=== PATIENT | female | born 1960 | race Caucasian/White ===

== ENCOUNTER 2022-05-01 21:08 | Inpatient (IN) | payer BC ==
[2022-05-01 21:38] LABS: Absolute Lymphocytes (CBC) 1.6 K/uL (0.7-4.9); Hematocrit 42.8 % (36.0-45.0); Lymphocytes % 14.4 % (15.3-44.8); MCV 90.9 fL (80-100); MPV 8.3 fL (7.6-11.3); RBC Red Blood Cell Count 4.71 M/uL (3.86-4.86)
[2022-05-01] MEDS ORDERED: LEVALBUTEROL 1.25 MG/3 ML NEB ONE (21:40)
[2022-05-01] MEDS ORDERED: METOPROLOL TARTRATE 5 MG/5 ML INJ IV ONE (21:46)
[2022-05-01 21:53] LABS: Protime INR 2.24
[2022-05-01 21:59] LABS: Albumin 3.6 g/dL (3.4-5.0); Bilirubin Direct 0.2 mg/dL (0-0.2); Bilirubin Total 0.6 mg/dL (0.2-1.0); Magnesium 1.7 mg/dL (1.8-2.4); Protein, Total 6.9 g/dL (6.4-8.2); Troponin High Sensitivity 18.8 pg/mL (<58.9)
--- NOTE | 2022-05-01 21:59 | RAD REPORT ---
EXAM DESCRIPTION: RAD - Chest Single View - 05/01/2022 9:50 pm CLINICAL HISTORY: SOB Chest pain. COMPARISON: Chest Single View dated 02/22/2016; Chest Single View dated 02/21/2016; Chest Pa And Lat ( 2 Views) dated 02/01/2016; CHEST SINGLE VIEW dated 01/12/2016 FINDINGS: Portable technique limits examination quality. Mild interstitial pulmonary edema. The heart is mildly enlarged in size. No displaced fractures. IMPRESSION: Mild CHF.
[2022-05-01] MEDS ORDERED: AMIODARONE HCL 150 MG/3 ML INJ IV ONE (22:31)
[2022-05-01] MEDS ORDERED: D5W 100 ML IV ONE (22:31)
[2022-05-01] MEDS ORDERED: AMIODARONE IN DEXTROSE,ISO-OSM 360 MG/200 ML BAG IV ONE (22:47)
[2022-05-01] MEDS ORDERED: MAGNESIUM SULFATE 1 gm IVPB 1 GM/100 ML BAG IV ONE (22:48)
--- NOTE | 2022-05-01 23:39 | EDPHYS ---
Physician Documentation [facility] Name: Lora Pack Age: 61 yrs Sex: Female : 1960 Arrival Date: 05/01/2022 Time: 21:09 Bed 19 Private MD: Tej Medellin ED Physician Micheal Stanley HPI: 05/01 21:20 This 61 yrs old Female presents to ER via Wheelchair with complaints of Shortness Of cp Breath. 21:20 The patient has shortness of breath at rest. Onset: The symptoms/episode began/occurred cp yesterday, and became worse today. Duration: The symptoms are continuous, and are steadily getting worse. The patient's shortness of breath is aggravated by light activity, supine position, talking. Associated signs and symptoms: Pertinent negatives: chest pain, productive cough, diaphoresis, fever, vomiting. Severity of symptoms: in the emergency department the symptoms are unchanged despite home interventions. Historical: - Allergies: 21:29 Codeine; kd3 - Home Meds: 21:29 amlodipine 5 mg tab 1 tab once daily [Active]; bisoprolol-hydrochlorothiazide 10-6.25 kd3 mg Oral tab for Hypertension [Active]; valsartan 160 mg Oral tab 1 tab once daily [Active]; - PMHx: 21:29 fibroids; Hypertension; Atrial fibrillation; kd3 - Immunization history:: Adult Immunizations up to date. - Social history:: Smoking status: unknown. ROS: 21:25 Constitutional: Negative for body aches, chills, fever, poor PO intake. cp 21:25 Cardiovascular: Negative for chest pain, edema, palpitations. cp 21:25 Eyes: Negative for injury, pain, redness, and discharge. cp 21:25 ENT: Negative for drainage from ear(s), ear pain, sore throat, difficulty swallowing, difficulty handling secretions. 21:25 Respiratory: Positive for orthopnea, shortness of breath, at rest. 21:25 Abdomen/GI: Negative for abdominal pain, nausea, vomiting, and diarrhea. 21:25 : Negative for urinary symptoms. 21:25 Neuro: Negative for altered mental status, dizziness, headache, loss of consciousness, syncope, weakness. Exam: 21:32 ECG was reviewed by the Attending Physician. cp Vital Signs: 21:28 Pulse 148; Resp 23; Pulse Ox 95% on R/A; kd3 21:33 BP 158 / 93; Pulse 141; Temp 98.5(O); Pulse Ox 97% on 2 lpm NC; Weight 95.25 kg; Height kd3 5 ft. 10 in. (177.80 cm); 21:50 BP 159 / 84; Pulse 137; Resp 33; Pulse Ox 100% on 2 lpm NC; jb4 21:55 BP 129 / 90; Pulse 131; Resp 30; Pulse Ox 95% on 2 lpm NC; jb4 22:52 BP 140 / 89; Pulse 110; Resp 24; Pulse Ox 92% on 4 lpm NC; jb4 23:35 BP 149 / 98; Pulse 123; Resp 31; Pulse Ox 95% on 4 lpm NC; jb4 21:33 Body Mass Index 30.13 (95.25 kg, 177.80 cm) kd3 MDM: 21:25 Patient medically screened. cp 23:00 Data reviewed: vital signs, nurses notes, lab test result(s), EKG, radiologic studies, cp plain films. 23:00 Antibiotic administration: Not indicated, the patient does not have an appreciated cp infiltrate. Test interpretation: by ED physician or midlevel provider: ECG, plain radiologic studies. 05/01 21:19 Order name: Basic Metabolic Panel; Complete Time: 22:04 cp 05/01 22:04 Interpretation: Normal except: NA 134; GLUC 120; BUN 5. cp 05/01 21:19 Order name: CBC with Diff; Complete Time: 21:52 cp 05/01 21:52 Interpretation: Normal except: WBC 11.3; MCV 90.9; MCH 29.6; LAURITA% 77.0; LYM% 14.4; NEUT cp A 8.7. 05/01 21:19 Order name: LFT's; Complete Time: 22:04 cp 05/01 21:19 Order name: Magnesium; Complete Time: 22:04 cp 05/01 21:19 Order name: NT PRO-BNP; Complete Time: 22:04 cp 05/01 21:19 Order name: PT-INR; Complete Time: 22:04 cp 05/01 21:19 Order name: Troponin HS; Complete Time: 22:04 cp 05/02 00:08 Order name: SARS-COV-2 RT PCR; Complete Time: 03:31 EDVT 05/02 00:16 Order name: ABG Arterial Blood Gas EDMS 05/02 03:25 Order name: Troponin High Sensitivity; Complete Time: 03:31 EDMS 05/02 03:26 Order name: Creatine Phosphokinase; Complete Time: 03:31 EDMS 05/02 03:26 Order name: CKMB Creatine Kinase MB; Complete Time: 03:31 EDMS 05/02 03:26 Order name: CBC with Automated Diff; Complete Time: 03:31 EDMS 05/01 21:19 Order name: XRAY Chest (1 view); Complete Time: 22:04 cp 05/01 21:19 Order name: EKG; Complete Time: 21:20 cp 05/01 21:19 Order name: Cardiac monitoring; Complete Time: 21:32 cp 05/01 21:19 Order name: EKG - Nurse/Tech; Complete Time: 21:32 cp 05/01 23:32 Order name: BIPAP cp 05/02 00:19 Order name: CT Chest For PE Angio sb3 05/02 03:31 Order name: Comprehensive Metabolic Panel; Complete Time: 21:57 EDMS 05/02 03:31 Order name: Lipid Profile; Complete Time: 21:57 EDMS 05/02 03:31 Order name: Magnesium; Complete Time: 21:57 EDMS 05/02 03:31 Order name: Thyroid Stimulating Hormone; Complete Time: 21:57 EDMS 05/01 21:19 Order name: IV Saline Lock; Complete Time: 21:32 cp 05/01 21:19 Order name: Labs collected and sent; Complete Time: 21:32 cp 05/01 21:19 Order name: O2 Per Protocol; Complete Time: 21:32 cp 05/01 21:19 Order name: O2 Sat Monitoring; Complete Time: 21:32 cp EC:32 Rate is 135 beats/min. Rhythm is irregular. QRS interval is normal. QT interval is cp normal. Interpreted by me. Reviewed by me. Administered Medications: 21:36 Drug: Xopenex (levalbuterol) (3) 1.25 mg Route: Inhalation; jb4 21:40 Drug: Metoprolol 5 mg Route: IVP; Site: right antecubital; jb4 21:50 Drug: Metoprolol 5 mg Route: IVP; Site: right antecubital; jb4 21:55 Drug: Metoprolol 5 mg Route: IVP; Site: right antecubital; jb4 22:13 Follow up: Response: No adverse reaction jb4 22:30 Drug: amiodarone 150 mg Volume: 100 ml; Route: IVPB; Infused Over: 10 mins; Site: right jb4 antecubital; 22:50 Drug: Magnesium Sulfate 1 grams Route: IVPB; Infused Over: 1 hrs; Site: right hand; jb4 23:50 Follow up: Response: No adverse reaction; Marked relief of symptoms; IV Status: jb4 Completed infusion 22:50 Drug: amiodarone 900 mg, D5W 500 ml Route: IVPB; Rate: 1 mg/min; Site: right jb4 antecubital; 05/02 00:55 Drug: Ativan (LORazepam) 0.5 mg Route: IVP; Site: right hand; sm5 Disposition: 19:40 Co-signature as Attending Physician, Micheal Stanley MD I agree with the assessment and kdr plan of care. Disposition Summary: 05/01/22 23:38 Hospitalization Ordered Hospitalization Status: Inpatient Admission cp Provider: Finesse Vilchis cp Condition: Fair cp Problem: new cp Symptoms: have improved cp Bed/Room Type: Standard cp Location: Intensive Care Unit(05/02/22 06:36) cg Room Assignment: 7-(05/02/22 06:36) cg Diagnosis - Unspecified atrial fibrillation cp - Unspecified combined systolic (congestive) and diastolic (congestive) heart failure cp Forms: - Medication Reconciliation Form cp - SBAR form cp Signatures: Dispatcher [facility] Micheal [facility] MD MD [facility] Harsh Chase PA PA cp Rody Cortez, JERRICA RN Michael Russell RN RN jb4 Daxa Youngblood RN RN kd3 Idania Jones RN RN sm5 Dianne Lee PA PA sb3 Corrections: (The following items were deleted from the chart) 00:06 05/01 23:37 COVID-19/FLU A+B+MOL.LAB.BRZ ordered. [facility] 05/02 00:25 05/01 23:38 Intensive Care Unit cp cg 05/02 00:25 05/01 23:38 cp cg 05/02 06:36 00:25 [facility] ER HOLD cg cg 06: 00:25 ERHOLD- cg cg
--- NOTE | 2022-05-01 23:39 | ER ---
Nurse's Notes [facility] Name: Lora Pack Age: 61 yrs Sex: Female : 1960 Arrival Date: 05/01/2022 Time: 21:09 Bed 19 Private MD: Tej Medellin Diagnosis: Unspecified atrial fibrillation;Unspecified combined systolic (congestive) and diastolic (congestive) heart failure Presentation: 05/01 21:28 Chief complaint: Patient states: i had surgery on my foot yesterday and started kd3 becoming a little short of breath but it has gotten worse this morning and through the day. now i cant even move without feeling like i cannot breathe. Coronavirus screen: Vaccine status: Patient reports receiving the 2nd dose of the covid vaccine. Ebola Screen: No symptoms or risks identified at this time. Initial Sepsis Screen: Does the patient meet any 2 criteria? No. Patient's initial sepsis screen is negative. Does the patient have a suspected source of infection? No. Patient's initial sepsis screen is negative. Risk Assessment: Do you want to hurt yourself or someone else? Patient reports no desire to harm self or others. Onset of symptoms was May 01, 2022. 21:28 Method Of Arrival: Wheelchair kd3 21:28 Acuity: SIN 3 kd3 Triage Assessment: :29 General: Appears uncomfortable, Behavior is calm, cooperative. Pain: Denies pain. kd3 Respiratory: Reports shortness of breath Onset: The symptoms/episode began/occurred yesterday, the patient has moderate shortness of breath. Historical: - Allergies: 21:29 Codeine; kd3 - Home Meds: 21:29 amlodipine 5 mg tab 1 tab once daily [Active]; bisoprolol-hydrochlorothiazide 10-6.25 kd3 mg Oral tab for Hypertension [Active]; valsartan 160 mg Oral tab 1 tab once daily [Active]; - PMHx: 21:29 fibroids; Hypertension; Atrial fibrillation; kd3 - Immunization history:: Adult Immunizations up to date. - Social history:: Smoking status: unknown. Screenin:20 Abuse screen: Denies threats or abuse. Nutritional screening: No deficits noted. jb4 Tuberculosis screening: No symptoms or risk factors identified. Fall Risk IV access (20 points). Ambulatory Aid- Crutches/Cane/Walker (15 pts). Gait- Impaired (20 pts.). Total Archuleta Fall Scale indicates High Risk Score (45 or more points). Fall prevention measures have been instituted. Side Rails Up X 2 Placed Close to Nursing Station Frequent Obs/Assessments Occuring Family Present and informed to notify staff if the need to leave the bedside As available patient and family educated on Fall Prevention Program and Strategies. Assessment: 21:20 General: Appears distressed, uncomfortable, Behavior is calm, cooperative, appropriate jb4 for age. Pain: Denies pain. Neuro: Level of Consciousness is awake, alert, obeys commands, Oriented to person, place, time, situation. Cardiovascular: Patient's skin is warm and dry. Rhythm is atrial fibrillation. Respiratory: Airway is patent Respiratory effort is even, labored, Respiratory pattern is symmetrical, tachypnea. Derm: Skin is intact, Skin is pink, warm \T\ dry. Musculoskeletal: Circulation, motion, and sensation intact. Range of motion: intact in all extremities. 22:30 Reassessment: Patient appears in no apparent distress at this time. Patient and/or jb4 family updated on plan of care and expected duration. Pain level reassessed. Respirations remain labored, tachypneic, and labored. Pt reports feeling better after breathing treatment. 23:30 Reassessment: Patient appears in no apparent distress at this time. No changes from jb4 previously documented assessment. Patient and/or family updated on plan of care and expected duration. Pain level reassessed. Pt reports it feels easier to take a breath. Is able to lay the head of the bed down more. Vital Signs: 21:28 Pulse 148; Resp 23; Pulse Ox 95% on R/A; kd3 21:33 BP 158 / 93; Pulse 141; Temp 98.5(O); Pulse Ox 97% on 2 lpm NC; Weight 95.25 kg; Height kd3 5 ft. 10 in. (177.80 cm); 21:50 BP 159 / 84; Pulse 137; Resp 33; Pulse Ox 100% on 2 lpm NC; jb4 21:55 BP 129 / 90; Pulse 131; Resp 30; Pulse Ox 95% on 2 lpm NC; jb4 22:52 BP 140 / 89; Pulse 110; Resp 24; Pulse Ox 92% on 4 lpm NC; jb4 23:35 BP 149 / 98; Pulse 123; Resp 31; Pulse Ox 95% on 4 lpm NC; jb4 21:33 Body Mass Index 30.13 (95.25 kg, 177.80 cm) kd3 ED Course: 21:09 Patient arrived in ED. as 21:09 Tej Medellin MD is Private Physician. as 21:18 Harsh Chase PA is PHCP. cp 21:18 Micheal Stanley MD is Attending Physician. cp 21:20 Patient has correct armband on for positive identification. Placed in gown. Bed in low jb4 position. Call light in reach. Side rails up X 1. Client placed on continuous cardiac and pulse oximetry monitoring. NIBP monitoring applied. night monitor on. 21:29 Triage completed. kd3 21:29 Arm band placed on right wrist. kd3 21:30 Initial lab(s) drawn, by me, sent to lab. Inserted saline lock: 18 gauge in right jb4 antecubital area, using aseptic technique. Blood collected. 21:32 Michael Hassan RN is Primary Nurse. jb4 21:52 XRAY Chest (1 view) In Process Unspecified. EDMS 22:50 Inserted saline lock: 18 gauge in right hand, using aseptic technique. jb4 23:37 Finesse Vilchis MD is Hospitalizing Provider. cp 05/02 00:00 No provider procedures requiring assistance completed. Patient admitted, IV remains in jb4 place. 00:10 Report given to JERRICA Emerson. jb4 00:27 SARS-COV-2 RT PCR Sent. 5 03:44 CT Chest For PE Angio Sent. bb Administered Medications: 05/01 21:36 Drug: Xopenex (levalbuterol) (3) 1.25 mg Route: Inhalation; jb4 21:40 Drug: Metoprolol 5 mg Route: IVP; Site: right antecubital; jb4 21:50 Drug: Metoprolol 5 mg Route: IVP; Site: right antecubital; jb4 21:55 Drug: Metoprolol 5 mg Route: IVP; Site: right antecubital; jb4 22:13 Follow up: Response: No adverse reaction jb4 22:30 Drug: amiodarone 150 mg Volume: 100 ml; Route: IVPB; Infused Over: 10 mins; Site: right jb4 antecubital; 22:50 Drug: Magnesium Sulfate 1 grams Route: IVPB; Infused Over: 1 hrs; Site: right hand; jb4 23:50 Follow up: Response: No adverse reaction; Marked relief of symptoms; IV Status: jb4 Completed infusion 22:50 Drug: amiodarone 900 mg, D5W 500 ml Route: IVPB; Rate: 1 mg/min; Site: right jb4 antecubital; 05/02 00:55 Drug: Ativan (LORazepam) 0.5 mg Route: IVP; Site: right hand; sm5 Medication: 05/01 23:30 VIS not applicable for this client. jb4 Outcome: 23:38 Decision to Hospitalize by Provider. simone 05/02 00:00 Admitted to ER Hold. Please see [facility] for further documentation. jb4 Condition: stable Discharge instructions given to patient, family, Instructed on the need for admit, Demonstrated understanding of instructions. 09:00 Patient left the ED. ww Signatures: Dispatcher [employer] Maria Dolores Baldwin Brenda, RN RN Harsh Maravilla, GIOVANNA PA Michael Hughes, JERRICA RN jb4 Daxa Youngblood RN RN kd3 Idania Jones RN RN sm5 Juanita Bailey, RN RN ww
[2022-05-02 00:16] LABS: Arterial Blood Carboxyhemoglob 2.1 % (0-1.5); Blood Gas Oxyhemoglobin 90.4 % (94-97); Blood O2 Saturation 93.3 % (92-98.5)
--- NOTE | 2022-05-02 00:35 | P.HP ---
Certification for Inpatient Patient admitted to: Inpatient With expected LOS: >2 Midnights Patient will require the following post-hospital care: None Practitioner: I am a practitioner with admitting privileges, knowledge of patient current condition, hospital course, and medical plan of care. Services: Services provided to patient in accordance with Admission requirements found in Title 42 Section 412.3 of the Code of Federal Regulations Patient History Date of Service: 05/02/22 Primary Care Provider: Sloan Reason for admission: Afib RVR History of Present Illness: Patient is a 61 y/o F with PMH of afib on xarelto and HTN who presented to the ED with complaints of SHOB. She reports that she had L foot surgery at [facility] yesterday that was uncomplicated. She was off her xarelto for 4 days. Patient states that she started feeling anxious and short of breath after she took her first dose of keflex today. She was found to be in afib RVR in the ED. She was given 3 doses of 5 mg metoprolol IVP without conversion and was subsequently put on amiodarone drip. Patient remains in afib and rate has been variable. Patient is very anxious. CXR showed mild CHF and BNP elevated at 4800. Patient denies history of CHF or prior episodes of afib RVR. She was put on bipap (although is not being compliant). ABG revealed pH 7.4, pCO2 45.2, PO2 67.5, HCO3 28.9. CT angio chest negative for PE. Patient is admitted for further evaluation and treatment. Allergies codeine Adverse Reaction (Verified 04/30/16 14:36) Nausea/Vomiting diazepam [From Valium] Adverse Reaction (Verified 04/30/16 14:36) Nausea/Vomiting Home medications list reviewed: Yes Home Medications: Amlodipine Besylate 10 mg PO DAILY 02/21/16 Valsartan [Diovan] 160 mg PO DAILY 02/21/16 Rivaroxaban [Xarelto] 20 mg PO DAILY #30 tablet 02/23/16 Sotalol HCl [Betapace*] 80 mg PO BID #60 tab 02/23/16 clonazePAM [Klonopin] 0.5 mg PO TID PRN #30 tab 02/23/16 Sulfamethoxazole/Trimethoprim [Bactrim Ds Tablet] 1 each PO BID #12 tablet 06/29/16 Tramadol HCl/Acetaminophen [Ultracet Tablet] 1 each PO Q4H #30 tablet 05/02/16 - Past Medical/Surgical History Diabetic: No -: Atrial Fibrillation -: HTN -: -: hysterectomy -: ureter removal -: tonsillectomy -: Angiogram 25 yrs ago r/t Bruit L side head -: L foot Psychosocial/ Personal History: Patient is . - Family History Father -: Stroke Notes: heart attack, stroke Mother -: Cancer, Other (see notes) (afib) Notes: defibrillator - Social History Smoking Status: Current every day smoker Alcohol use: No CD- Drugs: No Caffeine use: Yes Review of Systems Respiratory: Shortness of Breath Physical Examination - Physical Exam General: Alert, In no apparent distress, Other (anxious) HEENT: Atraumatic, PERRLA, EOMI, Sclerae nonicteric Neck: Supple, 2+ carotid pulse no bruit, No LAD, Without JVD or thyroid abnormality Respiratory: Diminished, Crackles/rales Cardiovascular: No edema, Irregular heart rate/rhythm Gastrointestinal: Normal bowel sounds, No tenderness Musculoskeletal: No swelling, No erythema (LLE), No tenderness, Warmth (L leg), Cast in place Integumentary: No rashes Neurological: Normal speech, Normal tone, Sensation intact, Normal affect - Studies Laboratory Data (last 24 hrs) 05/01/22 21:30: PT 25.1 H, INR 2.24 05/01/22 21:30: WBC 11.3 H, Hgb 14.0, Hct 42.8, Plt Count 259 05/01/22 21:30: Sodium 134 L, Potassium 4.0, BUN 5 L, Creatinine 0.68, Glucose 120 H, Magnesium 1.7 L, Total Bilirubin 0.6, AST 11 L, ALT 20, Alkaline Phosphatase 116 Assessment and Plan - Problems (Diagnosis) (1) Atrial fibrillation with RVR Current Visit: Yes Status: Acute (2) Hypomagnesemia Current Visit: Yes Status: Acute (3) Acute CHF Current Visit: Yes Status: Acute Qualifiers: Heart failure type: unspecified Qualified Code(s): I50.9 - Heart failure, unspecified (4) Dyspnea Current Visit: Yes Status: Acute Qualifiers: Dyspnea type: shortness of breath Qualified Code(s): R06.02 - Shortness of breath; R06.00 - Dyspnea, unspecified; R06.01 - Orthopnea (5) Hypertension Current Visit: Yes Status: Chronic Qualifiers: Hypertension type: primary hypertension Qualified Code(s): I10 - Essential (primary) hypertension - Plan -Continue amiodarone drip for afib RVR. Monitor on telemetry. Cardiology consulted. Lovenox for anticoagulation -BNP elevated and CXR showed mild CHF. Patient denies history of CHF. Echo ordered -CT angio chest negative for PE. patient was off xarelto x 4 days and had foot surgery yesterday. No obvious swelling in LEs -Patient saturating appropriately but tachypneic. ABG with mild elevation in CO2 and HCO2, drop in O2. Will cont bipap as RT recommends. -Pulmonology consulted. Breathing treatments PRN -Anxiety likely a component of SHOB. Ativan PRN. -Reconcile and continue home medications -Monitor and replete electrolytes per protocol -Lovenox for VTE ppx -Full code Discharge Plan: Home Plan to discharge in: Greater than 2 days - Advance Directives Does patient have a Living Will: No Does patient have a Durable POA for Healthcare: No - Code Status/Comfort Care Code Status Assessed: Yes (Full) Critical Care: No Time Spent Managing Pts Care (In Minutes): 70
[2022-05-02] MEDS ORDERED: LORazepam 2 MG/ML VIAL ONE (00:52)
[2022-05-02] MEDS ORDERED: ACETAMINOPHEN 500 MG TAB PO PRN (01:29)
[2022-05-02] MEDS ORDERED: AMIODARONE HCL 900 MG in Dextrose 5%-Water 482 ML IV SCH (01:29)
[2022-05-02] MEDS ORDERED: ONDANSETRON 4 MG/2 ML VIAL IV PRN (01:29)
[2022-05-02] MEDS ORDERED: ALBUTEROL 2.5 MG/3 ML NEB SOL NEB PRN ×2 (01:29→14:00)
[2022-05-02 01:40] VITALS: BMI 30.1
[2022-05-02] MEDS ORDERED: FUROSEMIDE 20 MG/ 2ML VIAL IV ONE (02:23)
[2022-05-02 03:13] LABS: Hematocrit 40.4 % (36.0-45.0); Lymphocytes % 9.7 % (15.3-44.8); MCV 91.2 fL (80-100); MPV 8.9 fL (7.6-11.3); RBC Red Blood Cell Count 4.43 M/uL (3.86-4.86)
[2022-05-02 03:25] LABS: CKMB Creatine Kinase MB < 1.0 ng/mL (1.0-3.6); Creatine Phosphokinase 37 U/L (26-192)
[2022-05-02 03:31] LABS: Albumin 3.2 g/dL (3.4-5.0); Bilirubin Total 0.7 mg/dL (0.2-1.0); Magnesium 1.7 mg/dL (1.8-2.4); Protein, Total 6.3 g/dL (6.4-8.2); Thyroid Stimulating Hormone 1.46 uIU/mL (0.360-3.740)
[2022-05-02] MEDS ORDERED: AMIODARONE IN DEXTROSE,ISO-OSM 360 MG/200 ML BAG IV ONE (04:44)
[2022-05-02] MEDS ORDERED: FUROSEMIDE 20 MG/ 2ML VIAL ONE (06:43)
[2022-05-02] MEDS: SOTALOL HCL 80 MG TAB PO SCH ×2 (07:53→17:28)
[2022-05-02] MEDS ORDERED: METOPROLOL XL 50 MG TAB PO SCH (08:00)
[2022-05-02] MEDS ORDERED: METOPROLOL XL 50 MG TAB PO ONE (08:27)
[2022-05-02] MEDS ORDERED: SOTALOL HCL 80 MG TAB ONE (08:27)
[2022-05-02] MEDS ORDERED: ENOXAPARIN 40 MG/0.4 ML SQ SCH (09:00)
--- NOTE | 2022-05-02 12:16 | RAD REPORT ---
EXAM DESCRIPTION: CT - Chest For Pe Angio - 05/02/2022 6:33 am CLINICAL HISTORY: Shortness of breath TECHNIQUE: Axial computed tomographic angiography images of the chest with intravenous contrast. S agittal and coronal reformatted images were created and reviewed. This CT exam was performed using one or more of the following dose reduction techniques: automated exposure control, adjustment of t he mA and/or kV according to patient size, and/or use of iterative reconstruction technique. MIP reconstructed images were created and reviewed. COMPARISON: No relevant prior studies available. FINDINGS: Artifacts: Motion artifact degrades image quality and limits evaluation of segmental and subsegmental vessels. Pulmonary arteries: No central or proximal segmental pulmonary arterial filling defects. Aorta: Mild atherosclerotic disease. No thoracic aortic aneurysm. Lungs: Interstitial thickening and patchy groundglass opacities with a lower lobe predominance. 8 m m left lower lobe nodule (series 401 image 115). Pleural space: Trace bilateral pleural effusions. No pneumothorax. Heart: The heart is moderately enlarged. Coronary artery calcification. No significant pericardia l effusion. No evidence of RV dysfunction. Mediastinum: Mildly enlarged mediastinal and right hilar lymph nodes measuring up to 16 mm in short axis. Thyroid: 1 cm peripherally calcified left thyroid nodule. Bones/joints: Multilevel spondylosis. No acute fracture. No dislocation. Soft tissues: Unremarkable. Lymph nodes: See above. Liver: The liver is enlarged. Intraperitoneal space: Minimal free fluid in the upper abdomen. IMPRESSION: 1. Motion artifact degrades image quality and limits evaluation of segmental and subse gmental vessels. No central or proximal segmental pulmonary embolic disease. 2. Findings suggestive of mild pulmonary congestion including trace bilateral pleural effusions. Culp perimposed infection not excluded. 3. 8 mm left lower lobe nodule. Recommend a non-contrast Chest CT at 6-12 months. If patient is hig h risk for malignancy, recommend an additional non-contrast Chest CT at 18-24 months; if patient is l ow risk for malignancy a non-contrast Chest CT at 18-24 months is optional. These guidelines do not a pply to immunocompromised patients and patients with cancer. Follow up in patients with significant c omorbidities as clinically warranted. For lung cancer screening, adhere to Lung-RADS guidelines. Refe luan: Radiology. 2017; 284(1):228-43. 4. 1 cm left thyroid nodule. No follow-up imaging is recommended. Reference: J Am Maribell Radiol. 2015 Dec;12(2): 143-50 5. Other findings as above. Electronically signed by: Harvey Lynn MD 05/02/2022 2:10 AM CDT Due to temporary technical issues with the PACS/Fluency reporting system, reports are being signed by the in house radiologist without review as a courtesy to ensure prompt reporting. The interpreting r adiologist is fully responsible for the content of the report.
--- NOTE | 2022-05-02 12:54 | EKG ---
Test Date: 2022-05-01 Test Time: 21:25:43 Steel Crane Operator: VASQUEZ MEASUREMENT RESULTS: Intervals: Rate: 135 MT: QRSD: 80 QT: 334 QTc: 501 [place]: P: MT: QRS: 64 T: 261 INTERPRETIVE STATEMENTS: Atrial fibrillation with rapid ventricular response with premature ventricular or aberrantly conducted complexes Low voltage QRS Cannot rule out Anterior infarct, age undetermined Marked ST abnormality, possible inferior subendocardial injury Abnormal ECG Compared to ECG 05/01/2022 21:24:16 Ventricular premature complex(es) now present ST (T wave) deviation now present Myocardial infarct finding still present Electronically Signed On 05-02-22 12:53:00 CDT by Reggie Goodson
--- NOTE | 2022-05-02 12:54 | EKG ---
Test Date: 2022-05-01 Test Time: 21:24:16 Hadoop Architect: VASQUEZ MEASUREMENT RESULTS: Intervals: Rate: 137 AR: QRSD: 76 QT: 360 QTc: 543 [place]: P: AR: QRS: 63 T: 67 INTERPRETIVE STATEMENTS: Atrial fibrillation with rapid ventricular response Low voltage QRS Cannot rule out Anteroseptal infarct, age undetermined Abnormal ECG Compared to ECG 02/22/2016 07:03:19 Low QRS voltage now present Myocardial infarct finding now present Sinus rhythm no longer present First degree AV block no longer present Electronically Signed On 05-02-22 12:53:04 CDT by Reggie Goodson
--- NOTE | 2022-05-02 15:03 | P.PN ---
Subjective Date of Service: 05/02/22 Patient is clinically doing well. Patient with no new complaints. Heart rate is still elevated. Currently on sotalol. Will finish 3 doses. Echocardiogram pending. Anticipate discharge in the morning. Review of Systems 10-point ROS is otherwise unremarkable Physical Examination - Vital Signs Temperature: 97.7 F Blood Pressure: 112/60 Pulse: 100 Respirations: 24 Pulse Ox (%): 100 - Physical Exam General: Alert, In no apparent distress HEENT: Atraumatic, PERRLA, EOMI Neck: Supple, JVD not distended Respiratory: Clear to auscultation bilaterally, Normal air movement Cardiovascular: Irregular heart rate/rhythm Gastrointestinal: Normal bowel sounds, Soft and benign, Non-distended, No tenderness Musculoskeletal: No clubbing, No swelling, No tenderness Neurological: Sensation intact, Cranial nerves 3-12 intact Lymphatics: No axilla or inguinal lymphadenopathy - Studies Laboratory Data (last 24 hrs) 05/01/22 21:30: PT 25.1 H, INR 2.24 05/01/22 21:30: WBC 11.3 H, Hgb 14.0, Hct 42.8, Plt Count 259 05/01/22 21:30: Sodium 134 L, Potassium 4.0, BUN 5 L, Creatinine 0.68, Glucose 120 H, Magnesium 1.7 L, Total Bilirubin 0.6, AST 11 L, ALT 20, Alkaline Phosphatase 116 Medications List Reviewed: Yes Assessment & Plan - Problems (Diagnosis) (1) Acute CHF Current Visit: Yes Status: Acute Qualifiers: Heart failure type: unspecified Qualified Code(s): I50.9 - Heart failure, unspecified (2) Atrial fibrillation with RVR Current Visit: Yes Status: Acute (3) Dyspnea Current Visit: Yes Status: Acute Qualifiers: Dyspnea type: shortness of breath Qualified Code(s): R06.02 - Shortness of breath; R06.00 - Dyspnea, unspecified; R06.01 - Orthopnea - Plan Plan: 1. Continue sotalol and Xarelto 2. Echocardiogram pending 3. Appreciate cardiology input 4. Remain in ICU 5. Monitor hemodynamics closely 6. GI DVT prophylaxis Discharge Plan: Home Plan to discharge in: Greater than 2 days - Advance Directives Does patient have a Living Will: No Does patient have a Durable POA for Healthcare: No - Code Status/Comfort Care Code Status Assessed: Yes Code Status: Full Code Critical Care: Yes Time Spent Managing PTS Care (In Minutes): 25
[2022-05-02] MEDS: RIVAROXABAN 20 MG TABLET PO SCH (17:28)
[2022-05-02] MEDS: LORazepam 2 MG/ML VIAL IV PRN (20:21)
[2022-05-03] MEDS: LORazepam 2 MG/ML VIAL IV PRN ×3 (02:05→16:40)
[2022-05-03 05:20] LABS: Absolute Lymphocytes (CBC) 1.3 K/uL (0.7-4.9); Lymphocytes % 19.6 % (15.3-44.8); MCV 89.7 fL (80-100); RBC Red Blood Cell Count 4.34 M/uL (3.86-4.86)
[2022-05-03 05:41] LABS: Albumin 3.1 g/dL (3.4-5.0); Bilirubin Total 0.9 mg/dL (0.2-1.0); Magnesium 1.7 mg/dL (1.8-2.4); Potassium 3.6 mmol/L (3.5-5.1)
[2022-05-03] MEDS: SOTALOL HCL 80 MG TAB PO SCH ×2 (06:35→16:40)
--- NOTE | 2022-05-03 06:44 | ECHO ---
HEIGHT: 5 ft 10 in WEIGHT: 210 lb 0 oz DATE OF STUDY: 05/02/[address]: Dianne Lee 2-DIMENSIONAL: YES M.MODE: YES DOPPLER: YES COLOR FLOW: YES TDS: PORTABLE: YES DEFINITY: BUBBLE STUDY: DIAGNOSIS: ATRIAL FIBRILLATION WITH RAPID VENTRICULAR RESPONSE/ ACUTE CONGESTIVE HEART FAILURE CARDIAC HISTORY: CATHERIZATION: SURGERY: PROSTHETIC VALVE: PACEMAKER: MEASUREMENTS (cm) DIASTOLIC (NORMALS) SYSTOLIC (NORMALS) IVSd 1.1 (0.6-1.2) LA Diam 4.5 (1.9-4.0) LVEF 40-45% LVIDd 5.2 (3.5-5.7) LVIDs 3.6 (2.0-3.5) %FS % LVPWd 1.2 (0.6-1.2) Ao Diam 2.5 (2.0-3.7) 2 DIMENSIONAL ASSESSMENT: RIGHT ATRIUM: NORMAL LEFT ATRIUM: DILATED RIGHT VENTRICLE: NORMAL LEFT VENTRICLE: NORMAL SIZE TRICUSPID VALVE: NORMAL MITRAL VALVE: NORMAL PULMONIC VALVE: NORMAL AORTIC VALVE: NORMAL PERICARDIAL EFFUSION: NONE AORTIC ROOT: NONE LEFT VENTRICULAR WALL MOTION: MILD GLOBAL HYPOKINESIS DOPPLER/COLOR FLOW: MILD MITRAL AND TRICUSPID REGURGITATION COMMENTS: ATRIAL FIBRILLATION. MILD MITRAL AND TRICUSPID REGURGITATION. NO THROMBUS. LEFT ATRIAL ENLARGEMENT. MILD GLOBAL HYPOKINESIS. TECHNOLOGIST: LOUIS ROWE
[2022-05-03] MEDS ORDERED: METOPROLOL XL 50 MG TAB PO SCH (09:00)
[2022-05-03] MEDS ORDERED: SOTALOL HCL 80 MG TAB PO ONE (09:00)
[2022-05-03] MEDS ORDERED: MAGNESIUM SULFATE 1 gm IVPB 1 GM/100 ML BAG IV ONE (09:00)
[2022-05-03] MEDS ORDERED: POTASSIUM CL SA 10 MEQ TAB PO ONE (09:00)
[2022-05-03] MEDS: FUROSEMIDE 40 MG TABLET PO SCH (09:11)
--- NOTE | 2022-05-03 11:56 | CON ---
Date of Consultation: 05/02/2022 Reason For Consultation: Atrial fibrillation with rapid ventricular response. History Of Present Illness: Ms. Pack is a 61-year-old woman. Has had a history of hypertension and atrial fibrillation in the past. She has been taking sotalol and Xarelto as well as Norvasc and Diovan for her hypertension and atrial fibrillation, but came in with rapid ventricular response. Re cently had some foot issues that may not need surgery down the road. Came in with shortness of breat h, rapid ventricular response. Denied PND, orthopnea. Has had pedal edema. Denied any syncope. He s had palpitations. Denied any fever or chills. She is still having atrial fibrillation with rapid ventricular response now. Allergies: INCLUDE CODEINE AND VALIUM. Review of Systems: Negative. Social History: Negative. Family History: Noncontributory. Medications: Listed earlier. Past Medical History: Listed earlier. Physical Examination: Vital Signs: She had a 97% O2 saturation on CPAP and BiPAP. She was in atrial fibrillation at a rat e of 113. Chest: Revealed some rales. HEENT: Negative. Neck: Supple with no bruit, lymphadenopathy, JVD, or thyromegaly. Cardiac: Revealed atrial fibrillation. Extremities: Revealed 1 to 2+ edema to the knee. No clubbing or cyanosis. Diagnostic Data: INR was 3.34. Her BNP was 4784. Her pO2 was 67, pCO2 of 45, pH of 7.42. Impression And Plan: 1.Paroxysmal rapid atrial fibrillation. 2.Possible acute systolic congestive heart failure. 3.Elevated BNP secondary to congestive heart failure. 4.Elevated INR secondary to Xarelto. For now, we will continue the Xarelto and continue the sotalol at 80 b.i.d. Continue Diovan and Norvasc. I think she should be on a low dose Lasix. Echocardiogr am is pending. We will see what that shows before making further decisions. JANNA/ANDRIA Voice ID: [id number] Report ID: [id number]
--- NOTE | 2022-05-03 13:11 | PN ---
Date of Progress Note: 05/03/2022 Ms. Pack had came in with CHF, paroxysmal atrial fibrillation with rapid ventricular response. H er atrial fibrillation still at a rate of about 110 to 120. I would agree with sotalol to 160 b.i.d. Her ejection fraction on the echocardiogram is 45% with [id number] global hypokinesis. I thi nk she needs to be on home medication, sotalol 160 b.i.d., Lasix 40 mg daily. She can go home probab ly in the morning. I discussed the case with Dr. Vilchis. She will need an outpatient followup. She n eeds an outpatient Lexiscan and if atrial fibrillation remains at sotalol 160 b.i.d., we will perform a direct current cardioversion. JANNA/ANDRIA Voice ID: [id number] Report ID: [id number]
--- NOTE | 2022-05-03 14:24 | P.PN ---
Date of Service: 05/03/22 Subjective Patient was tachycardic. Rate in the 110s to 120s. Patient was upset that she was not able to go home today. Have told her that if we can get her rate better controlled by increasing the dose of sotalol and that should help her ability to go home. Review of Systems 10-point ROS is otherwise unremarkable Physical Examination - Vital Signs reviewed - Physical Exam General: Alert, In no apparent distress Respiratory: Clear to auscultation bilaterally, Normal air movement Cardiovascular: Irregular heart rate/rhythm Gastrointestinal: Normal bowel sounds, Soft and benign, Non-distended, No tenderness Musculoskeletal: No clubbing, No swelling, No tenderness Neurological: Sensation intact, Cranial nerves 3-12 intact Assessment & Plan - Problems (Diagnosis) (1) Acute CHF Current Visit: Yes Status: Acute Qualifiers: Heart failure type: unspecified Qualified Code(s): I50.9 - Heart failure, unspecified (2) Atrial fibrillation with RVR Current Visit: Yes Status: Acute (3) Dyspnea Current Visit: Yes Status: Acute Qualifiers: Dyspnea type: shortness of breath Qualified Code(s): R06.02 - Shortness of breath; R06.00 - Dyspnea, unspecified; R06.01 - Orthopnea (4) Alcohol abuse Current Visit: Yes Status: Acute - Plan Plan: 1. Continue sotalol and Xarelto; increased to sotalol 160mg po BID 2. Echocardiogram pending 3. Appreciate cardiology input 4. Remain in ICU 5. Monitor hemodynamics closely 6. GI DVT prophylaxis Discharge Plan: Home Plan to discharge in: Greater than 2 days - Advance Directives Does patient have a Living Will: No Does patient have a Durable POA for Healthcare: No - Code Status/Comfort Care Code Status Assessed: Yes Code Status: Full Code Critical Care: Yes Time Spent Managing PTS Care (In Minutes): 25
[2022-05-03] MEDS: RIVAROXABAN 20 MG TABLET PO SCH (16:40)
[2022-05-03] MEDS: LOSARTAN POTASSIUM 50 MG TABLET PO SCH (20:15)
[2022-05-03] MEDS: chlordiazePOXIDE HCl 25 MG CAP PO SCH (20:15)
[2022-05-03] MEDS ORDERED: chlordiazePOXIDE HCl 5 MG CAP PO SCH (21:00)
[2022-05-04 04:41] LABS: Absolute Lymphocytes (CBC) 1.3 K/uL (0.7-4.9); Hematocrit 40.1 % (36.0-45.0); Lymphocytes % 19.8 % (15.3-44.8); MCV 90.2 fL (80-100); RBC Red Blood Cell Count 4.45 M/uL (3.86-4.86)
[2022-05-04] MEDS: SOTALOL HCL 80 MG TAB PO SCH (05:05)
[2022-05-04 05:07] LABS: Bilirubin Total 0.9 mg/dL (0.2-1.0); Magnesium 1.8 mg/dL (1.8-2.4); Potassium 3.6 mmol/L (3.5-5.1); Protein, Total 6.2 g/dL (6.4-8.2)
[2022-05-04] MEDS ORDERED: MAGNESIUM SULFATE 1 gm IVPB 1 GM/100 ML BAG IV ONE (07:00)
[2022-05-04] MEDS ORDERED: METOPROLOL TARTRATE 5 MG/5 ML INJ IV ONE (07:25)
[2022-05-04] MEDS ORDERED: FLUMAZENIL 0.1 MG/ML (5 mL VIAL) IV ONE (07:26)
[2022-05-04] MEDS ORDERED: MIDAZOLAM HCL 10 ML ONE (07:26)
[2022-05-04] MEDS ORDERED: MIDAZOLAM HCL 2 MG/2 ML INJ ONE (07:26)
[2022-05-04] MEDS ORDERED: ATROPINE SULFATE 1 MG/ML INJ ONE (07:26)
[2022-05-04] MEDS ORDERED: NA CHLORIDE 0.9% 500 ML ONE (07:28)
[2022-05-04] MEDS: LOSARTAN POTASSIUM 50 MG TABLET PO SCH (09:00)
[2022-05-04] MEDS: chlordiazePOXIDE HCl 25 MG CAP PO SCH (09:00)
[2022-05-04] MEDS: FUROSEMIDE 40 MG TABLET PO SCH (09:00)
--- NOTE | 2022-05-04 09:49 | EKG ---
Test Date: 2022-05-04 Test Time: 06:57:09 Client Strategist: TEMI MEASUREMENT RESULTS: Intervals: Rate: 85 IA: 208 QRSD: 92 QT: 428 QTc: 509 [place]: P: 55 IA: 208 QRS: 7 T: 60 INTERPRETIVE STATEMENTS: Normal sinus rhythm Possible Left atrial enlargement Low voltage QRS Incomplete right bundle branch block Cannot rule out Anterior infarct, age undetermined Abnormal ECG Compared to ECG 05/01/2022 21:25:43 Incomplete right bundle-branch block now present Atrial fibrillation no longer present Ventricular premature complex(es) no longer present ST (T wave) deviation no longer present Myocardial infarct finding still present Electronically Signed On 05-04-22 09:48:30 CDT by Reggie Goodson
[2022-05-04 13:28] VITALS: O2SAT 96
[2022-05-04 13:45] VITALS: BP 133/70; TEMP 98.7
--- NOTE | 2022-05-05 23:53 | P.DS ---
Discharge Date: 05/04/22 Primary Care Provider: Sloan Disposition: ROUTINE DISCHARGE Discharge Condition: GOOD Reason for Admission: Afib RVR - Problems (1) Acute CHF Status: Acute Qualifiers: Heart failure type: unspecified Qualified Code(s): I50.9 - Heart failure, unspecified (2) Atrial fibrillation with RVR Status: Acute (3) Dyspnea Status: Acute Qualifiers: Dyspnea type: shortness of breath Qualified Code(s): R06.02 - Shortness of breath; R06.00 - Dyspnea, unspecified; R06.01 - Orthopnea Brief History of Present Illness: Patient is a 61 y/o F with PMH of afib on xarelto and HTN who presented to the ED with complaints of SHOB. She reports that she had L foot surgery at [facility] yesterday that was uncomplicated. She was off her xarelto for 4 days. Patient states that she started feeling anxious and short of breath after she took her first dose of keflex today. She was found to be in afib RVR in the ED. She was given 3 doses of 5 mg metoprolol IVP without conversion and was subsequently put on amiodarone drip. Patient remains in afib and rate has been variable. Patient is very anxious. CXR showed mild CHF and BNP elevated at 4800. Patient denies history of CHF or prior episodes of afib RVR. She was put on bipap (although is not being compliant). ABG revealed pH 7.4, pCO2 45.2, PO2 67.5, HCO3 28.9. CT angio chest negative for PE. Patient is admitted for further evaluation and treatment. Hospital Course: patient is clinically doing well. Patient's medication was increased to 160 mg twice a day. Patient's rhythm stayed in atrial fibrillation. Patient had to be cardioverted. Patient will continue on anticoagulation per Cardiology recommendation. At this time, patient is stable for discharge home with outpati ent follow-up. Vital Signs/Physical Exam: Temp Pulse Resp BP Pulse Ox 98.7 F 68 23 H 133/70 99 05/04/22 12:00 05/04/22 12:00 05/04/22 12:00 05/04/22 12:00 05/04/22 12:00 General: Alert, In no apparent distress, Oriented x3 Laboratory Data at Discharge: WBC 6.7 K/uL (4.3-10.9) 05/04/22 04:04 Hgb 13.2 g/dL (12.0-15.0) 05/04/22 04:04 Hct 40.1 % (36.0-45.0) 05/04/22 04:04 Plt Count 210 K/uL (152-406) 05/04/22 04:04 PT 25.1 SECONDS (9.5-12.5) H 05/01/22 21:30 INR 2.24 05/01/22 21:30 Sodium 134 mmol/L (136-145) L 05/04/22 04:04 Potassium 3.6 mmol/L (3.5-5.1) 05/04/22 04:04 BUN 9 mg/dL (7-18) 05/04/22 04:04 Creatinine 0.51 mg/dL (0.55-1.3) L 05/04/22 04:04 Glucose 108 mg/dL (74-106) H 05/04/22 04:04 Magnesium 1.8 mg/dL (1.8-2.4) 05/04/22 04:04 Total Bilirubin 0.9 mg/dL (0.2-1.0) 05/04/22 04:04 AST 13 U/L (15-37) L 05/04/22 04:04 ALT 20 U/L (12-78) 05/04/22 04:04 Alkaline Phosphatase 102 U/L (45-117) 05/04/22 04:04 Triglycerides 71 mg/dL (<150) 05/02/22 02:40 Cholesterol 98 mg/dL (<200) 05/02/22 02:40 HDL Cholesterol 36 mg/dL (40-60) L 05/02/22 02:40 Cholesterol/HDL Ratio 2.72 05/02/22 02:40 Home Medications: Rivaroxaban [Xarelto] 20 mg PO DAILY #30 tablet 02/23/16 clonazePAM [Klonopin*] 0.5 mg PO TID PRN #30 tab 02/23/16 Atorvastatin Calcium [Lipitor] 40 mg PO DAILY 05/02/22 Hydralazine [Apresoline*] 100 mg PO TID 05/02/22 Mecobalamin [B12 Active] 1,000 mg PO DAILY 05/02/22 Olmesartan Medoxomil 40 mg PO DAILY 05/02/22 Vitamin D [Drisdol*] 50,000 units PO ONCE 05/02/22 Sotalol HCl [Betapace*] 160 mg PO BID #120 tab 05/04/22 New Medications: Sotalol HCl [Betapace*] 160 mg PO BID #120 tab Physician Discharge Instructions: OK to DC IV and DC home follow up with primary care doctor in 1-2 weeks Follow up with Dr. Goodson in 1-2 weeks new prescriptions written for patient to be taken to pharmacy call nurses station at [phone] with any questions regarding your admission Diet: AHA Activity: Bedrest Followup: Tej Medellin MD [Primary Care Provider] - Time spent managing pt's care (in minutes): 35
--- NOTE | 2022-05-06 03:54 | OP ---
Date of Procedure: 05/04/2022 Surgeon: Reggie Goodson MD Nitroglycerin Neutralizer: Ms. Pamela Rosario. Procedure: Direct current cardioversion. Indication: Atrial fibrillation. Indications: Ms. Pack came into the hospital with atrial fibrillation, unresponsive to sotalol e mary at 160 twice a day. Her heart rate was 130. We decided to intervene in the ICU. Procedure In Detail: She received 14 mg of Versed IV push for total sedation and received 1 shock of 200 joules and converted back to sinus rhythm. As far as were concerned, she can go home when she w akes up on sotalol 160 b.i.d. and Xarelto and we will see her in the office as an outpatient in the n ear future. There were no complications of the procedure. Anesthesia: Total conscious sedation was 15 minutes. JANNA/ANDRIA Voice ID: [id number] Report ID: [id number]
== END 2022-05-04 13:25 | disposition home or self-care (01) | DRG 308 ==
LOC: ER 21:08 → ERHOLD 05-02 01:19 → 3RD-ICU 05-02 08:24
PROVIDERS: ADMIT Hospitalist; ATTEND Hospitalist
PROC: 5A09357 Assistance with Respiratory Ventilation, Less than 24 Consecutive Hours, Continuous Positive Airway Pressure (ICD-10-PCS; 2022-05-02)
PROC: 5A2204Z Restoration of Cardiac Rhythm, Single (ICD-10-PCS; principal; 2022-05-04)
DX: I48.0 Paroxysmal atrial fibrillation (principal); J96.01 Acute respiratory failure with hypoxia; I50.41 Acute combined systolic (congestive) and diastolic (congestive) heart failure; I11.0 Hypertensive heart disease with heart failure; F10.10 Alcohol abuse, uncomplicated; E83.42 Hypomagnesemia; Z79.01 Long term (current) use of anticoagulants; F17.210 Nicotine dependence, cigarettes, uncomplicated; Z20.822 Contact with and (suspected) exposure to COVID-19; Z91.19 Patient's noncompliance with other medical treatment and regimen
CPT/HCPCS: 0240U; 36415; 71045; 71275; 80048; 80053; 80061; 80076; 82550; 82553; 82805; 83735; 83880; 84443; 84484; 85025; 85610; 92960; 93005; 93306; 94660; 99285; J0282; J0461; J1940; J2250; J3475; J7040; Q9967; U0003

== ENCOUNTER 2022-06-04 02:54 | Observation (INO) | payer BC ==
[2022-06-04 03:24] LABS: Protime INR 2.89
[2022-06-04 03:25] LABS: Absolute Lymphocytes (CBC) 1.3 K/uL (0.7-4.9); Hematocrit 42.2 % (36.0-45.0); Lymphocytes % 16.8 % (15.3-44.8); MCV 84.1 fL (80-100); MPV 8.5 fL (7.6-11.3); RBC Red Blood Cell Count 5.02 M/uL (3.86-4.86)
[2022-06-04 03:37] LABS: Potassium 3.7 mmol/L (3.5-5.1); Troponin High Sensitivity 9.4 pg/mL (<58.9)
--- NOTE | 2022-06-04 04:08 | EDPHYS ---
Physician Documentation [facility] Name: Lora Pack Age: 61 yrs Sex: Female : 1960 Arrival Date: 06/04/2022 Time: 02:55 Bed 5 Private MD: Micheal Stanley D ED Physician Micheal Stanley HPI: 06/04 05:07 This 61 yrs old Female presents to ER via Wheelchair with complaints of Breathing kdr Difficulty. 05:07 The patient has shortness of breath at rest, with light activity. Onset: The kdr symptoms/episode began/occurred gradually, 2 day(s) ago. Duration: The symptoms are continuous, and are steadily getting worse. The patient's shortness of breath is aggravated by light activity, supine position, walking. Associated signs and symptoms: Pertinent positives: Palpatations. Severity of symptoms: At their worst the symptoms were mild moderate just prior to arrival, in the emergency department the symptoms are unchanged. The patient has experienced similar episodes in the past, chronically. The patient has been recently seen by a physician: The patient has been recently been admitted at [facility], was discharged last month. Historical: - Allergies: 03:02 Codeine; aa9 03:02 Valium; aa9 - Home Meds: 03:42 Xarelto 20 mg oral tab 1 tab once daily [Active]; metoprolol tartrate 50 mg Oral tab 2 aa9 tabs once daily [Active]; clonazepam 0.5 mg Oral tab 1 tab 2 times per day [Active]; atorvastatin 40 mg oral tab 1 tab once daily [Active]; olmesartan 40 mg oral tab 1 tab once daily [Active]; hydralazine 100 mg Oral tab 1 tab 3 times per day [Active]; Vitamin D Oral 50,000 unit once per week [Active]; sotalol 80 mg Oral tab 1 tab 2 times per day [Active]; Vitamin B-12 1,000 mcg Oral tab [Active]; - PMHx: 03:02 Atrial fibrillation; Hypertension; aa9 - PSHx: 03:02 section; Ligation of fallopian tube; aa9 - Immunization history:: Client reports receiving the 2nd dose of the Covid vaccine. - Social history:: Smoking status: Patient reports the use of cigarette tobacco products, smokes one pack cigarettes per day. ROS: 05:07 Constitutional: Negative for fever, chills, and weight loss, Eyes: Negative for injury, kdr pain, redness, and discharge, ENT: Negative for injury, pain, and discharge, Neck: Negative for injury, pain, and swelling, Abdomen/GI: Negative for abdominal pain, nausea, vomiting, diarrhea, and constipation, Back: Negative for injury and pain, : Negative for injury, bleeding, discharge, and swelling, MS/Extremity: Negative for injury and deformity, Skin: Negative for injury, rash, and discoloration, Neuro: Negative for headache, weakness, numbness, tingling, and seizure activity. Psych: Negative for depression, anxiety, suicide ideation, homicidal ideation, and hallucinations, Allergy/Immunology: Negative for hives, rash, and allergies, Endocrine: Negative for neck swelling, polydipsia, polyuria, polyphagia, and marked weight changes, Hematologic/Lymphatic: Negative for swollen nodes, abnormal bleeding, and unusual bruising. 05:07 Cardiovascular: Positive for edema, palpitations, Negative for chest pain. 05:07 Respiratory: Positive for dyspnea on exertion, shortness of breath, Negative for hemoptysis, orthopnea, pleurisy. 05:07 MS/extremity: Positive for Wrap to left lower extremity. Exam: 05:07 Constitutional: This is a well developed, well nourished patient who is awake, alert, kdr and in mild distress. Head/Face: Normocephalic, atraumatic. Eyes: Pupils equal round and reactive to light, extra-ocular motions intact. Lids and lashes normal. Conjunctiva and sclera are non-icteric and not injected. Cornea within normal limits. Periorbital areas with no swelling, redness, or edema. Neck: Trachea midline, no thyromegaly or masses palpated, and no cervical lymphadenopathy. Supple, full range of motion without nuchal rigidity, or vertebral point tenderness. No Meningismus. Chest/axilla: Normal chest wall appearance and motion. Nontender with no deformity. No lesions are appreciated. Cardiovascular: Regular rate and rhythm with a normal S1 and S2. No gallops, murmurs, or rubs. Normal PMI, no JVD. No pulse deficits. Respiratory: Lungs have equal breath sounds bilaterally, clear to auscultation and percussion. No rales, rhonchi or wheezes noted. No increased work of breathing, no retractions or nasal flaring. Abdomen/GI: Soft, non-tender, with normal bowel sounds. No distension or tympany. No guarding or rebound. No evidence of tenderness throughout. Back: No spinal tenderness. No costovertebral tenderness. Full range of motion. Skin: Warm, dry with normal turgor. Normal color with no rashes, no lesions, and no evidence of cellulitis. Neuro: Awake and alert, GCS 15, oriented to person, place, time, and situation. Cranial nerves II-XII grossly intact. Motor strength 5/5 in all extremities. Sensory grossly intact. Cerebellar exam normal. Normal gait. Psych: Awake, alert, with orientation to person, place and time. Behavior, mood, and affect are within normal limits. 05:07 Respiratory: the patient does not display signs of respiratory distress, Respirations: normal, Breath sounds: rales, that are mild, are scattered, are heard diffusely. Vital Signs: 02:57 Weight 95.25 kg; Height 5 ft. 10 in. (177.80 cm); aa9 03:05 BP 179 / 118; Pulse 91; Resp 25 S; Temp 97.8(O); Pulse Ox 96% on R/A; aa9 03:17 Pulse Ox 98% on 2 lpm NC; aa9 04:00 BP 154 / 108; Pulse 95; Resp 30; Pulse Ox 97% on 2 lpm NC; jb4 04:35 BP 160 / 100; Pulse 106; aa9 05:47 BP 147 / 89; Pulse 74; Resp 26; Pulse Ox 95% on 2 lpm NC; jb4 02:57 Body Mass Index 30.13 (95.25 kg, 177.80 cm) aa9 MDM: 04:07 Patient medically screened. kdr 05:07 Data reviewed: vital signs, nurses notes, lab test result(s), radiologic studies. kdr Counseling: I had a detailed discussion with the patient and/or guardian regarding: the historical points, exam findings, and any diagnostic results supporting the discharge/admit diagnosis, lab results, radiology results, the need for outpatient follow up. 06/04 03:14 Order name: COVID-19 SARS RT PCR (Document "Date of Onset" if Symptomatic); Complete lp1 Time: 05:15 06/04 03:01 Order name: XRAY Chest (1 view); Complete Time: 19:24 lp1 01 03:17 Order name: Basic Metabolic Panel; Complete Time: 03:47 EDMS 08 03:17 Order name: Troponin High Sensitivity; Complete Time: 03:47 EDMS 08 03:17 Order name: NT PRO-BNP; Complete Time: 03:47 EDMS 08/ 03:17 Order name: CBC with Automated Diff; Complete Time: 03:47 EDMS 06/04 03:17 Order name: Protime (+INR); Complete Time: 03:47 EDMS 08 10:47 Order name: Basic Metabolic Panel; Complete Time: 19:24 EDMS 08 03:01 Order name: EKG; Complete Time: 03:04 lp1 06/04 03:01 Order name: Cardiac monitoring; Complete Time: 03:07 lp1 06/04 03:01 Order name: EKG - Nurse/Tech; Complete Time: 03:07 lp1 06/04 03:01 Order name: IV Saline Lock; Complete Time: 03:07 lp1 06/04 03:01 Order name: Labs collected and sent; Complete Time: 03:07 lp1 06/04 03:01 Order name: O2 Per Protocol; Complete Time: 03:07 lp1 06/04 03:01 Order name: O2 Sat Monitoring; Complete Time: 03:07 lp1 Administered Medications: 04:30 Drug: Lasix (furosemide) 40 mg Route: IVP; Site: right antecubital; aa9 04:36 Follow up: Response: No adverse reaction aa9 04:30 Drug: Metoprolol 5 mg Route: IVP; Site: right antecubital; aa9 04:35 Follow up: BP 160 / 100; Pulse 106 bpm; Response: No adverse reaction aa9 04:30 Drug: Xopenex (levalbuterol) 1.25 mg Route: Inhalation; aa9 Disposition Summary: 06/04/22 04:07 Hospitalization Ordered Hospitalization Status: Inpatient Admission kdr Provider: Finesse Vilchis Condition: Fair kdr Problem: an acute exacerbation kdr Symptoms: have improved kdr Bed/Room Type: Standard kdr Location: Telemetry/MedSurg (Inpatient)(06/04/22 14:23) bd Room Assignment: 224(06/04/22 14:23) bd Diagnosis - Shortness of breath kdr - Heart failure, unspecified kdr - Hypo-osmolality and hyponatremia kdr - Persistent atrial fibrillation kdr Forms: - Medication Reconciliation Form kdr - SBAR form kdr Signatures: Dispatcher [employer] EDMS Jo Garza bd Ritu Salamanca RN RN Micheal Gomez MD MD kdr Leticia Mota RN RN lp1 Rika Turner RN RN aa9 Corrections: (The following items were deleted from the chart) 03:32 03:15 BASIC METABOLIC PANEL+C.LAB.BRZ ordered. EDMS EDMS 03:32 03:15 CBC+H.LAB.BRZ ordered. EDMS EDMS 03:32 03:15 PROBNP+C.LAB.BRZ ordered. EDMS EDMS 03:32 03:15 PROTIME (+INR)+COAG.LAB.BRZ ordered. EDMS EDMS 03:32 03:15 Troponin High Sensitivity+C.LAB.BRZ ordered. EDMS EDMS 05:21 04:07 Telemetry/MedSurg (Inpatient) kdr mw 05:21 04:07 kdr mw 14:23 05:21 [facility] ER HOLD mw bd 14:23 05:21 ERHOLD- mw bd
--- NOTE | 2022-06-04 04:08 | ER ---
Nurse's Notes [facility] Name: Lora Pack Age: 61 yrs Sex: Female : 1960 Arrival Date: 06/04/2022 Time: 02:55 Bed 5 Private MD: Micheal Stanley D Diagnosis: Shortness of breath;Heart failure, unspecified;Hypo-osmolality and hyponatremia;Persistent atrial fibrillation Presentation: 06/04 02:57 Chief complaint: Patient states: difficulty breathing for a few days. Coronavirus aa9 screen: Vaccine status: Patient reports receiving the 2nd dose of the covid vaccine. Ebola Screen: No symptoms or risks identified at this time. Risk Assessment: Do you want to hurt yourself or someone else? Patient reports no desire to harm self or others. Onset of symptoms was June 01, 2022. 02:57 Method Of Arrival: Wheelchair aa9 02:57 Acuity: SIN 3 aa9 03:13 Initial Sepsis Screen: Does the patient meet any 2 criteria? RR > 20 per min. Systolic aa9 BP < 90 mmHg. Does the patient have a suspected source of infection? No. Patient's initial sepsis screen is negative. Triage Assessment: 03:05 General: Appears distressed, uncomfortable, Behavior is cooperative, anxious. Pain: aa9 Denies pain. Respiratory: Reports shortness of breath at rest Onset: The symptoms/episode began/occurred 2 days ago, the patient has moderate shortness of breath. 03:10 Respiratory: Breath sounds are clear. aa9 Historical: - Allergies: 03:02 Codeine; aa9 03:02 Valium; aa9 - Home Meds: 03:42 Xarelto 20 mg oral tab 1 tab once daily [Active]; metoprolol tartrate 50 mg Oral tab 2 aa9 tabs once daily [Active]; clonazepam 0.5 mg Oral tab 1 tab 2 times per day [Active]; atorvastatin 40 mg oral tab 1 tab once daily [Active]; olmesartan 40 mg oral tab 1 tab once daily [Active]; hydralazine 100 mg Oral tab 1 tab 3 times per day [Active]; Vitamin D Oral 50,000 unit once per week [Active]; sotalol 80 mg Oral tab 1 tab 2 times per day [Active]; Vitamin B-12 1,000 mcg Oral tab [Active]; - PMHx: 03:02 Atrial fibrillation; Hypertension; aa9 - PSHx: 03:02 section; Ligation of fallopian tube; aa9 - Immunization history:: Client reports receiving the 2nd dose of the Covid vaccine. - Social history:: Smoking status: Patient reports the use of cigarette tobacco products, smokes one pack cigarettes per day. Screenin:12 Abuse screen: Denies threats or abuse. Denies injuries from another. Nutritional aa9 screening: No deficits noted. Tuberculosis screening: No symptoms or risk factors identified. Fall Risk None identified. Assessment: 03:11 Cardiovascular: Rhythm is irregular. Respiratory: Airway is patent Respiratory effort aa9 is labored. 04:09 Reassessment: Pt reports that her chest feels tight stating " It just feels like I jbLilly cannot take a deep enough breath.". Lung sounds are diminished OTILIA with expiratory wheezes noted to the right lobes. Respirations remain even, labored, and tachypneic. Provider notified, see [facility] for orders. 04:31 Reassessment: Reassessment: pt reports "feeling better" after Xopenex nebulizer. aa9 05:09 Reassessment: wheezing auscultated on right lower lobe. aa9 05:47 Reassessment: Pt is resting in bed. Is now able to tolerate laying flatter in the bed. jb4 Currently laying on her left side. States " I feel much better, I could not lay down earlier the way I am now.". Respirations continue to be tachypneic, are now unlabored, even, and symmetrical. 14:50 Reassessment:. ap3 14:50 Reassessment: Report called to JERRICA Grace. ap3 Vital Signs: 02:57 Weight 95.25 kg; Height 5 ft. 10 in. (177.80 cm); aa9 03:05 BP 179 / 118; Pulse 91; Resp 25 S; Temp 97.8(O); Pulse Ox 96% on R/A; aa9 03:17 Pulse Ox 98% on 2 lpm NC; aa9 04:00 BP 154 / 108; Pulse 95; Resp 30; Pulse Ox 97% on 2 lpm NC; jb4 04:35 BP 160 / 100; Pulse 106; aa9 05:47 BP 147 / 89; Pulse 74; Resp 26; Pulse Ox 95% on 2 lpm NC; jb4 02:57 Body Mass Index 30.13 (95.25 kg, 177.80 cm) aa9 ED Course: 02:55 Patient arrived in ED. ja2 03:01 Triage completed. aa9 03:08 Initial lab(s) drawn, by me, sent to lab. Inserted saline lock: 18 gauge in right jb4 antecubital area, using aseptic technique. Blood collected. 03:08 Arm band placed on. aa9 03:13 Patient has correct armband on for positive identification. Placed in gown. Bed in low aa9 position. Adult w/ patient. 03:14 Client placed on continuous cardiac and pulse oximetry monitoring. NIBP monitoring aa9 applied. Head of bed elevated. 03:17 Micheal Stanley MD is Private Physician. lp1 03:17 Oxygen administration via nasal cannula \\T\\ 2L/min Response to oxygen therapy: symptoms aa9 improved. 03:18 Micheal Stanley MD is Attending Physician. lp1 04:02 XRAY Chest (1 view) In Process Unspecified. EDMS 04:06 Finesse Vilchis MD is Hospitalizing Provider. kdr 05:50 No provider procedures requiring assistance completed. Patient admitted, IV remains in jb4 place. 06:23 Michael Hassan, RN is Primary Nurse. jb4 Administered Medications: 04:30 Drug: Lasix (furosemide) 40 mg Route: IVP; Site: right antecubital; aa9 04:36 Follow up: Response: No adverse reaction aa9 04:30 Drug: Metoprolol 5 mg Route: IVP; Site: right antecubital; aa9 04:35 Follow up: BP 160 / 100; Pulse 106 bpm; Response: No adverse reaction aa9 04:30 Drug: Xopenex (levalbuterol) 1.25 mg Route: Inhalation; aa9 Medication: 05:50 VIS not applicable for this client. jb4 Outcome: 04:07 Decision to Hospitalize by Provider. kdr 06:16 Admitted to ER Hold. Please see [facility] for further documentation. jb4 06:16 Condition: stable 06:16 Discharge instructions given to patient, family, Instructed on the need for admit, Demonstrated understanding of instructions. 15:15 Patient left the ED. ss Signatures: [facility] MD MD kdr Smirch, Shelby RN RN ss Leticia Mota RN RN lp1 Michael Hassan RN RN jb4 Meeta Jara RN RN ap3 Chiquis Edwards Aylin RN RN aa9 Corrections: (The following items were deleted from the chart) 04:39 04:31 Reassessment: aa9 aa9
[2022-06-04] MEDS ORDERED: LEVALBUTEROL 1.25 MG/3 ML NEB ONE (04:25)
[2022-06-04] MEDS ORDERED: FUROSEMIDE 40 MG/4 ML VIAL ONE (04:25)
[2022-06-04] MEDS ORDERED: METOPROLOL TARTRATE 5 MG/5 ML INJ IV ONE (04:25)
--- NOTE | 2022-06-04 05:17 | P.HP ---
Certification for Inpatient Patient admitted to: Inpatient With expected LOS: >2 Midnights Patient will require the following post-hospital care: None Practitioner: I am a practitioner with admitting privileges, knowledge of patient current condition, hospital course, and medical plan of care. Services: Services provided to patient in accordance with Admission requirements found in Title 42 Section 412.3 of the Code of Federal Regulations Patient History Date of Service: 06/04/22 Reason for admission: Afib RVR, CHF, Hyponatremia History of Present Illness: Patient is a 61-year-old female with chronic A. fib on Xarelto, systolic CHF (EF 40-45%), and hypertension who presented to the ED with complaints of worsening shortness of breath for 3 days. Patient has been experiencing orthopnea, peripheral edema, and increased anxiety. She is noted to be in afib RVR on EKG upon arrival to ED. Hypertensive at 179/118 and tachypneic. Her labs were signif icant for Na 125, Cl 90, BNP 6823, PT 32.5. Chest xray showed pulmonary edema. She was given 40 mg IV lasix, 5 mg IV lopressor, and BT. Her rate came down and is now fluctuating from 80s-100s. She reports that her shortness of breath has already improved. Patient reports that she sees Dr. Betancur for cardiology, who is eventually planning ablation. She is not prescribed lasix daily. She is admitted for further evaluation and treatment. Allergies cephalexin [From Keflex] Allergy (Verified 05/02/22 09:12) Shortness of breath codeine Adverse Reaction (Verified 04/30/16 14:36) Nausea/Vomiting diazepam [From Valium] Adverse Reaction (Verified 04/30/16 14:36) Nausea/Vomiting Home medications list reviewed: Yes Home Medications: Rivaroxaban [Xarelto] 20 mg PO DAILY #30 tablet 02/23/16 clonazePAM [Klonopin*] 0.5 mg PO TID PRN #30 tab 02/23/16 Atorvastatin Calcium [Lipitor] 40 mg PO DAILY 05/02/22 Hydralazine [Apresoline*] 100 mg PO TID 05/02/22 Mecobalamin [B12 Active] 1,000 mg PO DAILY 05/02/22 Olmesartan Medoxomil 40 mg PO DAILY 05/02/22 Vitamin D [Drisdol*] 50,000 units PO ONCE 05/02/22 Sotalol HCl [Betapace*] 160 mg PO BID #120 tab 05/04/22 - Past Medical/Surgical History Diabetic: No -: Atrial Fibrillation -: HTN -: Systolic CHF -: -: hysterectomy -: ureter removal -: tonsillectomy -: Angiogram 25 yrs ago r/t Bruit L side head -: L foot Psychosocial/ Personal History: Patient is . - Family History Father -: Stroke Notes: heart attack, stroke Mother -: Cancer, Other (see notes) (afib) Notes: defibrillator - Social History Smoking Status: Current every day smoker Alcohol use: No CD- Drugs: No Caffeine use: Yes Place of Residence: Home Review of Systems Respiratory: Shortness of Breath Cardiovascular: Edema Physical Examination - Physical Exam General: Alert, In no apparent distress HEENT: Atraumatic, PERRLA, EOMI, Sclerae nonicteric Neck: Supple, 2+ carotid pulse no bruit, No LAD, Without JVD or thyroid abnormality Respiratory: Crackles/rales Cardiovascular: Edema (2+ pitting edema BLE), Irregular heart rate/rhythm Gastrointestinal: Normal bowel sounds, No tenderness Musculoskeletal: No tenderness Integumentary: No rashes Neurological: Normal speech, Normal strength at 5/5 x4 extr, Normal tone, Normal affect - Studies Laboratory Data (last 24 hrs) 06/04/22 03:06: PT 32.5 H, INR 2.89 06/04/22 03:06: WBC 7.4, Hgb 13.9, Hct 42.2, Plt Count 176 06/04/22 03:06: Sodium 125 L, Potassium 3.7, BUN 4 L, Creatinine 0.57, Glucose 123 H 06/04/22 03:01: PT Cancelled, INR Cancelled 06/04/22 03:01: WBC Cancelled, Hgb Cancelled, Hct Cancelled, Plt Count Cancelled 06/04/22 03:01: Sodium Cancelled, Potassium Cancelled, BUN Cancelled, Creatinine Cancelled, Glucose Cancelled Assessment and Plan - Problems (Diagnosis) (1) Systolic CHF Current Visit: Yes Status: Acute Qualifiers: Heart failure chronicity: acute on chronic Qualified Code(s): I50.23 - Acute on chronic systolic (congestive) heart failure (2) Atrial fibrillation with RVR Current Visit: Yes Status: Acute (3) Dyspnea Current Visit: Yes Status: Acute Qualifiers: Dyspnea type: orthopnea Qualified Code(s): R06.01 - Orthopnea (4) Hyponatremia Current Visit: Yes Status: Acute (5) Hypertension Current Visit: Yes Status: Chronic Qualifiers: Hypertension type: primary hypertension Qualified Code(s): I10 - Essential (primary) hypertension - Plan Acute on Chronic Systolic CHF: Echo 1 month ago showed EF 40-45%. BNP elevated at 7000. Cardiology consulted. 40 mg IV lasix given in ED. Monitor intake and output. 1500 cc/day fluid restriction. Daily weight. Afib RVR: Rate is fluctuating from 80s-100s after 5 mg IV lopressor. Still in afib. Patient takes 160 mg sotalol BID. She had to be cardioverted during previous admission. Denies chest pain. Continue home xarelto and sotalol. Monitor on telemetry. Hyponatremia: hypervolvemic secondary to CHF. Fluid restriction. lasix given. Repeat BMP in 6 hours. Hypertension: Reconcile and continue home medications Patient is a 1 ppd cigarette smoker. Cessation advised. Monitor and replete electrolytes per protocol Xarelto for VTE ppx Full Code Discharge Plan: Home Plan to discharge in: 48 Hours - Advance Directives Does patient have a Living Will: No Does patient have a Durable POA for Healthcare: No - Code Status/Comfort Care Code Status Assessed: Yes (Full) Critical Care: No Time Spent Managing Pts Care (In Minutes): 50
[2022-06-04 06:16] VITALS: BMI 30.1
[2022-06-04] MEDS: SOTALOL HCL 80 MG TAB PO SCH ×2 (06:26→17:21)
[2022-06-04] MEDS ORDERED: clonazePAM 0.5 MG TAB PO PRN (06:26)
[2022-06-04] MEDS ORDERED: ONDANSETRON 4 MG/2 ML VIAL IV PRN (06:26)
[2022-06-04] MEDS ORDERED: ACETAMINOPHEN 500 MG TAB PO PRN (06:26)
[2022-06-04] MEDS ORDERED: SOTALOL HCL 80 MG TAB ONE (07:25)
[2022-06-04] MEDS: ALBUTEROL 2.5 MG/3 ML NEB SOL NEB PRN ×2 (10:45→21:22)
[2022-06-04 10:47] LABS: Potassium 3.5 mmol/L (3.5-5.1)
[2022-06-04] MEDS ORDERED: ALBUTEROL 2.5 MG/3 ML NEB SOL ONE (10:56)
--- NOTE | 2022-06-04 12:20 | EKG ---
Test Date: 2022-06-04 Test Time: 03:02:21 Surgery Aid: MEASUREMENT RESULTS: Intervals: Rate: 119 [place]: QRSD: 86 QT: 324 QTc: 455 [place]: P: OK: QRS: 28 T: 29 INTERPRETIVE STATEMENTS: Atrial fibrillation with rapid ventricular response Low voltage QRS Cannot rule out Anterior infarct, age undetermined Abnormal ECG Compared to ECG 05/04/2022 06:57:09 Sinus rhythm no longer present Incomplete right bundle-branch block no longer present Myocardial infarct finding still present Electronically Signed On 06-04-22 12:19:33 CDT by Siva Barragan
--- NOTE | 2022-06-04 12:20 | EKG ---
Test Date: 2022-06-04 Test Time: 03:02:55 Network Development Coordinator: MEASUREMENT RESULTS: Intervals: Rate: 114 [place]: QRSD: 88 QT: 368 QTc: 507 [place]: P: MO: QRS: 56 T: 60 INTERPRETIVE STATEMENTS: Atrial fibrillation with rapid ventricular response with premature ventricular or aberrantly conducted complexes Low voltage QRS Cannot rule out Anterior infarct, age undetermined Abnormal ECG Compared to ECG 06/04/2022 03:02:21 Ventricular premature complex(es) now present Myocardial infarct finding still present Electronically Signed On 06-04-22 12:19:24 CDT by Siva Barragan
--- NOTE | 2022-06-04 12:27 | RAD REPORT ---
EXAM DESCRIPTION: RAD - Chest Single View - 06/04/2022 4:00 am CLINICAL HISTORY: SOB COMPARISON: 05/01/2022 FINDINGS: Single frontal radiograph view of the chest. Cardiomediastinal silhouette: Cardiomegaly. Atherosclerotic calcification of thoracic aorta. Leads ov erlie the chest. Lungs: Bilateral interstitial opacities. Low lung volumes. No pneumothorax. Bones: No acute osseous abnormality. Upper abdomen: No abnormality identified. IMPRESSION: 1. Cardiomegaly with bilateral interstitial opacities concerning for pulmonary edema. Electronically signed by: Fantasma Joya 06/04/2022 4:20 AM CDT Due to temporary technical issues with the PACS/Fluency reporting system, reports are being signed by the in house radiologists without review as a courtesy to insure prompt reporting. The interpreting radiologist is fully responsible for the content of the report.
--- NOTE | 2022-06-04 12:53 | CON ---
Date of Consultation: 06/04/2022 Reason For Consultation: Congestive heart failure, atrial fibrillation, and hyponatremia. History Of Present Illness: Ms. Pack is a 61-year-old woman. She was recently in the hospital f or congestive heart failure, atrial fibrillation, has a known ejection fraction of 40% to 45%, underw ent a cardioversion successfully from AFib to sinus rhythm, on sotalol 160 b.i.d. in the hospital in May. She claims she has been taking her medication, but she came back with atrial fibrillation, rap id ventricular response, congestive heart failure with PND, orthopnea, pedal edema. No palpitations and no syncope. Denied any fever or chills or chest pain. Past Medical History: Includes atrial fibrillation, status post cardioversion, recurrent, hypertensi on and congestive heart failure with ejection fraction of 40% to 45% that is chronic, systolic. She also has a history of dyslipidemia. Allergies: SHE IS ALLERGIC TO CODEINE, CEPHALEXIN, AND VALIUM. Medications: At home are supposed to be sotalol of 160 b.i.d., Xarelto, hydralazine, Lipitor, and ol mesartan, but she was not on any diuretics. Review of Systems: Negative. Social History: Negative. Family History: Noncontributory. Physical Examination: Vital Signs: Stable. She was afebrile. She was in atrial fibrillation at a rate of 86. HEENT: Negative. Chest: Reveals rales both bases. Cardiac: Revealed atrial fibrillation. No murmurs, gallops, or rubs. Abdomen: Obese, but benign. Extremities: Revealed 2+ edema to the knees. Neurologic: She was nonfocal. Pulses were present distally bilaterally. Skin: Dry and intact. Diagnostic Data: EKG showed AFib . Sodium was 125. BNP was 6823. INR was 2.89. Ejectio n fraction of 40% to 45% on echo. O2 saturation was 100% on 2 L of nasal cannula. Impression And Plan: 1.Acute on chronic systolic congestive heart failure. 2.Hyponatremia secondary to dilutional effect from congestive heart failure. 3.Elevated BNP secondary to congestive heart failure. 4.Atrial fibrillation, recurrent, on 160 b.i.d. of sotalol. Heart rate, however, is controlled. Sh e is on Xarelto. I will continue her present regimen. Consider amiodarone down the road. She needs to have an outpatient Lexiscan. Consider ablation of the atrial fibrillation, keeps recurring. Her blood pressure is fairly well controlled, but I think we will need to resume her hydralazine and Lip itor. I think with her hyponatremia may be we should hold losartan for now. She definitely needs to have aggressive diuresis with IV Lasix. We would not send her home today until she is feeling [place] r. I will discuss the case further with Dr. Giles. JANNA/ANDRI[place] Voice ID: [id number] Report ID: [id number]
--- NOTE | 2022-06-04 14:30 | P.PN ---
Date of Service: 06/04/22 Patient seen and examined. She states she feels much better and shortness of breath has significantly improved. Atrial fibrillation is rate controlled. She still has shortness of breath with talking. Diagnosis Acute on chronic systolic heart failure. Rapid atrial fibrillation Hyponatremia-improving Plan: Continue IV Lasix. Free water restriction. Cardiology input appreciated. Carlos benito currently rate controlled. Continue sotalol and Xarelto. Resume hydralazine at a reduced dose-50 mg 3 times daily. Hold olmesartan due to hyponatremia. Monitor BMP
[2022-06-04 16:56] LABS: Potassium 3.6 mmol/L (3.5-5.1)
[2022-06-04] MEDS ORDERED: RIVAROXABAN 20 MG TABLET PO SCH (17:00)
[2022-06-04] MEDS: HYDRALAZINE HCL 25 MG TABLET PO SCH (21:11)
[2022-06-05 03:50] LABS: Absolute Lymphocytes (CBC) 1.1 K/uL (0.7-4.9); Lymphocytes % 21.1 % (15.3-44.8); MCV 85.1 fL (80-100); MPV 8.5 fL (7.6-11.3); RBC Red Blood Cell Count 4.35 M/uL (3.86-4.86)
[2022-06-05 04:36] VITALS: O2SAT 98
[2022-06-05 04:40] LABS: Magnesium 1.7 mg/dL (1.8-2.4); Potassium 3.3 mmol/L (3.5-5.1)
[2022-06-05] MEDS ORDERED: MAGNESIUM SULFATE 1 gm IVPB 1 GM/100 ML BAG IV ONE (04:45)
[2022-06-05] MEDS ORDERED: POTASSIUM CL SA 10 MEQ TAB PO ONE ×2 (04:45→13:45)
[2022-06-05] MEDS: SOTALOL HCL 80 MG TAB PO SCH (05:12)
[2022-06-05] MEDS: ALBUTEROL 2.5 MG/3 ML NEB SOL NEB PRN (05:38)
--- NOTE | 2022-06-05 06:22 | P.PN ---
Date of Service: 06/05/22
[2022-06-05] MEDS ORDERED: ATORVASTATIN 40 MG TAB PO SCH (09:00)
[2022-06-05] MEDS ORDERED: FUROSEMIDE 40 MG/4 ML VIAL IV SCH (09:00)
[2022-06-05] MEDS: HYDRALAZINE HCL 25 MG TABLET PO SCH (09:48)
[2022-06-05 11:42] LABS: Albumin 3.5 g/dL (3.4-5.0); Potassium 3.5 mmol/L (3.5-5.1); Protein, Total 7.1 g/dL (6.4-8.2)
[2022-06-05 12:08] VITALS: BP 135/77; TEMP 97.3
--- NOTE | 2022-06-05 13:47 | P.DS ---
Admission Date: 06/04/22 Discharge Date: 06/05/22 Disposition: ROUTINE DISCHARGE Discharge Condition: GOOD Reason for Admission: Afib RVR, CHF, Hyponatremia Brief History of Present Illness: 61-year-old female with chronic A. fib on Xarelto, systolic CHF (EF 40-45%), and hypertension who presented to the ED with complaints of worsening shortness of breath for 3 days. Patient has been experiencing orthopnea, peripheral edema, and increased anxiety. She is noted to be in afib RVR on EKG upon arrival to ED. Hypertensive at 179/118 and tachypneic. Her labs were significant for Na 125, Cl 90, BNP 6823, PT 32.5. Chest xray showed pulmonary edema. She was given 40 mg IV lasix, 5 mg IV lopressor, and BT. Her rate came down and is now fluctuating from 80s-100s. She reports that her shortness of breath has already improved. Patient reports that she sees Dr. Betancur for cardiology, who is eventually planning ablation. She is not prescribed lasix daily. She is admitted for further evaluation and treatment. Hospital Course: Problem List Acute on chronic systolic heart failure (HFrEF) Atrial fibrillation with RVR; paroxysmal Hyponatremia Hypertension recent left foot surgery Patient was found to be in afib with acute CHF exacerbation. She was continued on her home afib medications and given IV lasix, which she responded well to. Cardiology was consulted, recommended continuing home medications with exception of ARB given her hyponatremia, and discharge home with lasix. Patient's olmesartan was held and recommend holding this medication until follow up with Cardiology. Furosemide 20mg daily prescribed. Review of last echocardiogram performed last month showed EF: 40-45%, and she reports increased edema and orthopnea. Patient was deemed stable for discharge home. Follow up with PCP within 1 week Follow up with Cardiology in 2-3 weeks. Home health and home PT ordered. Vital Signs/Physical Exam: Temp Pulse Resp BP Pulse Ox 97.3 F 97 H 16 135/77 95 06/05/22 12:00 06/05/22 12:00 06/05/22 12:00 06/05/22 12:00 06/05/22 12:00 General: Alert, In no apparent distress, Oriented x3 HEENT: EOMI, Sclerae nonicteric Respiratory: Clear to auscultation bilaterally, Diminished Cardiovascular: Edema (1+ bilaterally to knees), Irregular heart rate/rhythm Gastrointestinal: Soft and benign, Non-distended, No tenderness Musculoskeletal: No contractures, No tenderness Integumentary: No rashes, No significant lesion Neurological: Normal speech, Normal affect Laboratory Data at Discharge: WBC 5.1 K/uL (4.3-10.9) D 06/05/22 03:09 Hgb 12.3 g/dL (12.0-15.0) 06/05/22 03:09 Hct 37.0 % (36.0-45.0) 06/05/22 03:09 Plt Count 170 K/uL (152-406) 06/05/22 03:09 PT 32.5 SECONDS (9.5-12.5) H 06/04/22 03:06 INR 2.89 06/04/22 03:06 Sodium 135 mmol/L (136-145) L 06/05/22 10:58 Potassium 3.5 mmol/L (3.5-5.1) 06/05/22 10:58 BUN 8 mg/dL (7-18) 06/05/22 10:58 Creatinine 0.64 mg/dL (0.55-1.3) 06/05/22 10:58 Glucose 138 mg/dL (74-106) H 06/05/22 10:58 Phosphorus 4.0 mg/dL (2.5-4.9) 06/05/22 03:09 Magnesium 1.7 mg/dL (1.8-2.4) L 06/05/22 03:09 Total Bilirubin 1.0 mg/dL (0.2-1.0) 06/05/22 10:58 AST 14 U/L (15-37) L 06/05/22 10:58 ALT 18 U/L (12-78) 06/05/22 10:58 Alkaline Phosphatase 123 U/L (45-117) H 06/05/22 10:58 Home Medications: Rivaroxaban [Xarelto] 20 mg PO DAILY #30 tablet 02/23/16 clonazePAM [Klonopin*] 0.5 mg PO TID PRN #30 tab 02/23/16 Atorvastatin Calcium [Lipitor] 40 mg PO DAILY 05/02/22 Hydralazine [Apresoline*] 100 mg PO TID 05/02/22 Mecobalamin [B12 Active] 1,000 mg PO DAILY 05/02/22 Vitamin D [Drisdol*] 50,000 units PO ONCE 05/02/22 Sotalol HCl [Betapace*] 160 mg PO BID #120 tab 05/04/22 Furosemide 20 mg PO DAILY 30 Days #30 tab 06/05/22 New Medications: Furosemide 20 mg PO DAILY 30 Days #30 tab Physician Discharge Instructions: Patient was found to be in afib with acute CHF exacerbation. She was continued on her home afib medications and given IV lasix, which she responded well to. Cardiology was consulted, recommended continuing home medications with exception of ARB given her hyponatremia, and discharge home with lasix. Patient's olmesartan was held and recommend holding this medication until follow up with Cardiology. Furosemide 20mg daily prescribed. Review of last echocardiogram performed last month showed EF: 40-45%, and she reports increased edema and orthopnea. Patient was deemed stable for discharge home. Follow up with PCP within 1 week Follow up with Cardiology in 2-3 weeks. Home health and home PT ordered. Diet: AHA Followup: Tej Medellin MD [Primary Care Provider] - 1 Week Time spent managing pt's care (in minutes): 45
== END 2022-06-05 16:30 | disposition home health service (06) ==
LOC: ER 02:54 → ERHOLD 05:09 → INTOOBSV 05:09 → 2ND 14:42
PROVIDERS: ADMIT Internal Medicine; ATTEND Hospitalist
DX: I11.0 Hypertensive heart disease with heart failure (principal); I50.23 Acute on chronic systolic (congestive) heart failure; I48.0 Paroxysmal atrial fibrillation; E87.1 Hypo-osmolality and hyponatremia; E78.5 Hyperlipidemia, unspecified; F17.210 Nicotine dependence, cigarettes, uncomplicated; Z98.890 Other specified postprocedural states; Z79.01 Long term (current) use of anticoagulants; Z79.899 Other long term (current) drug therapy; Z88.1 Allergy status to other antibiotic agents; Z88.5 Allergy status to narcotic agent; Z88.8 Allergy status to other drugs, medicaments and biological substances; Z90.710 Acquired absence of both cervix and uterus; Z20.822 Contact with and (suspected) exposure to COVID-19; Z82.3 Family history of stroke; Z80.9 Family history of malignant neoplasm, unspecified; Z82.49 Family history of ischemic heart disease and other diseases of the circulatory system
CPT/HCPCS: 93005 ×2; 85025 ×2; 80048 ×4; 36415 ×2; 83735; 84100; 85610; 84484; 80053; 83880; 71045; 97161; 97530; 94640 ×3; 94760; 96375; 96374; 99285; U0003; J1940 ×2; J3475; G0378

== ENCOUNTER 2024-06-19 09:33 | Emergency (ER) | payer BC ==
[2024-06-19 10:29] LABS: Absolute Lymphocytes (CBC) 0.7 K/uL (0.7-4.9); Absolute Monocytes 0.8 K/uL (0.1-1.3); Absolute Neutrophil 6.1 K/uL (1.8-8.0); Basophils % 0.1 % (0-1.3); Hematocrit 16.5 % (36.0-45.0); Lymphocytes % 9.2 % (15.3-44.8); MCH 16.5 pg (27.0-35.0); MCHC 28.8 g/dL (32.0-36.0); MCV 57.3 fL (80-100); MPV 8.5 fL (7.6-11.3); Monocytes % 10.1 % (3.3-12.3); Neutrophils % 80.6 % (41.7-73.7); Nucleated RBC Absolute Count 0.1 (0-0); Nucleated Red Blood Cells % 1.6 % (0-0); Platelets 349 thou/uL (152-406); RBC Red Blood Cell Count 2.87 M/uL (3.86-4.86)
[2024-06-19 10:35] LABS: Hemoglobin 4.7 g/dL (12.0-15.0)
[2024-06-19 10:42] LABS: SARS-CoV-2 Antigen CONTROL BLUE LINE VIS/BG OK; SARS-CoV-2 Antigen Rapid Res Negative (Negative)
[2024-06-19 10:43] LABS: Anion Gap 12.3 mEq/L (5.0-15.0); Magnesium 1.8 mg/dL (1.6-2.4); Potassium 3.3 mEq/L (3.5-5.1); Troponin High Sensitivity 20.5 pg/mL (<58.9)
--- NOTE | 2024-06-19 10:50 | RAD REPORT ---
EXAM DESCRIPTION: RAD - Chest Single View - 06/19/2024 10:36 am CLINICAL HISTORY: DYSPNEA Chest pain. COMPARISON: Chest Single View dated 06/04/2022; Chest Single View dated 05/01/2022; Chest Single View d ated 02/22/2016; Chest Single View dated 02/21/2016; Chest For Pe Angio dated 05/02/2022 FINDINGS: Portable technique limits examination quality. Mild interstitial pulmonary edema. Cardiac shadow is significantly enlarged. No displaced fractures. IMPRESSION: Mild CHF.
--- NOTE | 2024-06-19 11:05 | ER ---
Nurse's Notes [facility] Name: Lora Pack Age: 63 yrs Sex: Female : 1960 Arrival Date: 06/19/2024 Time: 09:33 Bed 16 Private MD: Diagnosis: Rectal bleeding;anemia;hyponatremia;Heart failure, unspecified Presentation: 06/19 09:52 Chief complaint: Worsening SOB, pain all over, and BLE swelling x 5 days. Coronavirus hb screen: At this time, the client does not indicate any symptoms associated with coronavirus-19. Ebola Screen: No symptoms or risks identified at this time. Initial Sepsis Screen: Does the patient meet any 2 criteria? No. Patient's initial sepsis screen is negative. Does the patient have a suspected source of infection? No. Patient's initial sepsis screen is negative. Risk Assessment: Do you want to hurt yourself or someone else? Patient reports no desire to harm self or others. Onset of symptoms was June 15, 2024. 09:52 Method Of Arrival: Ambulatory hb 09:52 Acuity: SIN 3 hb Triage Assessment: 09:51 General: Appears in no apparent distress. uncomfortable, Behavior is calm, cooperative. rs5 Respiratory: the patient has mild shortness of breath. Respiratory: Reports shortness of breath cough that is Airway is patent Respiratory effort is even, unlabored, Respiratory pattern is regular, symmetrical, Onset: The symptoms/episode began/occurred gradually. Historical: - Allergies: 09:53 Codeine; hb 09:53 Valium; hb - PMHx: 09:53 Atrial fibrillation; fibroids; Hypertension; hb - PSHx: 09:53 section; Ligation of fallopian tube; hb - Immunization history:: Adult Immunizations up to date. - Infectious Disease History:: Denies. - Social history:: Smoking status: Patient reports the use of cigarette tobacco products, smokes one-half pack cigarettes per day. Screenin:50 [facility] ED Fall Risk Assessment (Adult) History of falling in the last 3 months, rs5 including since admission No falls in past 3 months (0 pts) Confusion or Disorientation No (0 pts) Intoxicated or Sedated No (0 pts) Impaired Gait No (0 pts) Mobility Assist Device Used No (0 pt) Altered Elimination No (0 pt) Score/Fall Risk Level 0 - 2 = Low Risk Oriented to surroundings, Maintained a safe environment. Abuse screen: Denies threats or abuse. Nutritional screening: No deficits noted. Tuberculosis screening: No symptoms or risk factors identified. Assessment: 09:50 General: Appears in no apparent distress. uncomfortable, Behavior is calm, cooperative. rs5 Pain: Complains of pain in generalized body aches Pain currently is 3 out of 10 on a pain scale. Quality of pain is described as aching, Is continuous. Neuro: Level of Consciousness is awake, alert, obeys commands, Oriented to person, place, time, situation. Cardiovascular: Patient's skin is warm and dry. Rhythm is regular. Respiratory: Reports shortness of breath cough that is Airway is patent Respiratory effort is even, unlabored, Respiratory pattern is regular, symmetrical, GI: Abdomen is round non-distended, Abd is soft and non tender X 4 quads. : No signs and/or symptoms were reported regarding the genitourinary system. EENT: No signs and/or symptoms were reported regarding the EENT system. Derm: Skin is intact, Skin is pink, warm \T\ dry. Musculoskeletal: Range of motion: intact in all extremities. 11:01 Reassessment: Patient and/or family updated on plan of care and expected duration. Pain rs5 level reassessed. Patient is alert, oriented x 3, equal unlabored respirations, skin warm/dry/pink. 12:05 Reassessment: No changes from previously documented assessment. to bedside, blood rs5 product consent form signed. 13:14 Reassessment: to bedside for blood transfusion, rate started at 50 ml/hr, remained with rs5 patient for first 15 min no adverse reaction noted, rate increased to 175 ml/hr. See paper charting for more information. 13:37 Reassessment: Patient and/or family updated on plan of care and expected duration. Pain rs5 level reassessed. Patient is alert, oriented x 3, equal unlabored respirations, skin warm/dry/pink. report given to EMS for transfer . Vital Signs: 09:52 BP 97 / 56; Pulse 103; Resp 20; Temp 97.7(O); Pulse Ox 98% on R/A; Weight 106.59 kg; hb Height 5 ft. 10 in. ; Pain 7/10; 12:11 BP 119 / 65; Pulse 88; Resp 17; Pulse Ox 98% on R/A; rs5 12:55 BP 118 / 62; Pulse 81; Resp 16; Temp 97.8; Pulse Ox 100% on R/A; rs5 13:00 BP 110 / 65; Pulse 83; Resp 17; Temp 97.9; Pulse Ox 99% on R/A; rs5 13:05 BP 113 / 69; Pulse 87; Resp 17; Temp 97.8(O); Pulse Ox 98% ; rs5 13:20 BP 117 / 72; Pulse 88; Resp 17; Temp 97.8(O); Pulse Ox 99% ; rs5 09:52 Body Mass Index 33.72 (106.59 kg, 177.8 cm) hb 09:52 Pain Scale: Adult hb ED Course: 09:36 Patient arrived in ED. mg5 09:49 Segundo Mayfield DO is Attending Physician. ms3 09:50 Patient has correct armband on for positive identification. Placed in gown. Bed in low rs5 position. Call light in reach. Side rails up X2. 09:50 No provider procedures requiring assistance completed. Inserted saline lock: 22 gauge rs5 in right antecubital area, using aseptic technique. Blood collected. Flushed with 10 mL NS. 09:51 Michele Ham, RN is Primary Nurse. rs5 09:53 Triage completed. hb 09:54 Arm band placed on. hb 10:34 Notified ED physician of a critical lab result(s). Hgb 4.7. Not expected, orders to nj1 redraw. Primary nurse notified. 10:38 XRAY Chest (1 view) In Process Unspecified. EDMS 11:08 Transfer initiated with [facility]; ADWOA Louis is the em1 emergency medical services coordinator. 11:39 Patient accepted as a transfer to [facility] ER; ADWOA Louis is admin approval em1 and Dr. Edward Maldonado is accepting physician. 12:55 [facility] to provide transportation; [facility] instructed to wait 15 minutes for em1 reaction time due to blood infusion. 13:40 Patient transferred, IV remains in place. rs5 Administered Medications: 12:10 Drug: Furosemide IVP 40 mg IVP once; give over 2 minutes Route: IVP; Site: right rs5 antecubital; 12:30 Follow up: Response: No adverse reaction rs5 Medication: 13:20 VIS not applicable for this client. rs5 Outcome: 11:04 ER care complete, transfer ordered by ms3 13:40 Transferred by ground EMS to [facility], [facility] [place], Transfer form completed. rs5 13:40 Condition: stable 13:40 Instructed on the need for admit, Demonstrated understanding of instructions, 13:47 Patient left the ED. rs5 Signatures: Dispatcher [employer] EDAbhishek Lopez em1 Irma Banres, RN RN Segundo Mayfield, DO ms3 Michele Ham RN RN rs5 Velma Singleton RN RN nj1 Gabrielle Boothe mg5
--- NOTE | 2024-06-19 11:05 | EDPHYS ---
Physician Documentation [facility] Name: Lora Pack Age: 63 yrs Sex: Female : 1960 Arrival Date: 06/19/2024 Time: 09:33 Bed 16 Private MD: ED Physician Segundo Mayfield HPI: 06/19 11:45 This 63 yrs old Female presents to ER via Ambulatory with complaints of Shortness Of ms3 Breath, Flu Symptoms. 11:45 63-year-old female with past medical history of atrial fibrillation, fibroids, ms3 hypertension presents to the emergency department for myalgias, headache, shortness of breath, cough, runny nose that began on Saturday. Patient denies any alleviating or inciting factors. Patient notes her legs are swollen. Historical: - Allergies: 09:53 Codeine; hb 09:53 Valium; hb - PMHx: 09:53 Atrial fibrillation; fibroids; Hypertension; hb - PSHx: 09:53 section; Ligation of fallopian tube; hb - Immunization history:: Adult Immunizations up to date. - Infectious Disease History:: Denies. - Social history:: Smoking status: Patient reports the use of cigarette tobacco products, smokes one-half pack cigarettes per day. ROS: 11:45 Neck: Negative for injury, pain, and swelling, Cardiovascular: Negative for chest pain, ms3 and palpitations. Abdomen/GI: Negative for abdominal pain, nausea, vomiting, diarrhea, and constipation, 11:45 Constitutional: Positive for body aches, 11:45 ENT: Positive for nasal discharge, rhinorrhea, 11:45 Respiratory: Positive for cough, shortness of breath, 11:45 MS/extremity: Positive for Lower extremity edema, Exam: 11:45 Constitutional: This is a well developed, well nourished patient who is awake, alert, ms3 and in no acute distress. Neck: Trachea midline, no cervical lymphadenopathy. Supple, full range of motion without nuchal rigidity, or vertebral point tenderness. No Meningismus. Chest/axilla: Normal chest wall appearance and motion. Nontender with no deformity. 11:45 Abdomen/GI: Soft, non-tender, with normal bowel sounds. No distension or tympany. No guarding or rebound. No evidence of tenderness throughout. Skin: Warm, dry with normal turgor. Normal color with no rashes, no lesions, and no evidence of cellulitis. 11:45 Cardiovascular: Rate: tachycardic, Rhythm: irregular, Pulses: no pulse deficits are appreciated, 11:45 Cardiovascular: Edema: 3+ edema to level of left ankle and right ankle, pedal edema, 11:45 Musculoskeletal/extremity: Extremities: 11:51 ECG was reviewed by the Attending Physician. ms3 Vital Signs: 09:52 BP 97 / 56; Pulse 103; Resp 20; Temp 97.7(O); Pulse Ox 98% on R/A; Weight 106.59 kg; hb Height 5 ft. 10 in. ; Pain 7/10; 12:11 BP 119 / 65; Pulse 88; Resp 17; Pulse Ox 98% on R/A; rs5 12:55 BP 118 / 62; Pulse 81; Resp 16; Temp 97.8; Pulse Ox 100% on R/A; rs5 13:00 BP 110 / 65; Pulse 83; Resp 17; Temp 97.9; Pulse Ox 99% on R/A; rs5 13:05 BP 113 / 69; Pulse 87; Resp 17; Temp 97.8(O); Pulse Ox 98% ; rs5 13:20 BP 117 / 72; Pulse 88; Resp 17; Temp 97.8(O); Pulse Ox 99% ; rs5 09:52 Body Mass Index 33.72 (106.59 kg, 177.8 cm) hb 09:52 Pain Scale: Adult hb MDM: 10:03 Patient medically screened. ms3 11:51 Differential diagnosis: CHF exacerbation, pneumonia, COVID. Data reviewed: vital signs, ms3 nurses notes, lab test result(s), EKG, radiologic studies, and as a result, I will transfer patient. Consideration of Admission/Observation Patient transferred. Management of patient was discussed with the following: ER Physician, Dr Maldonado. I considered the following discharge prescriptions or medication management in the emergency department Medications were administered in the Emergency Department. See MAR. Independent interpretation of the following test(s) in the Emergency Department EKG: See my EKG interpretation above. Counseling: I had a detailed discussion with the patient and/or guardian regarding the historical points, exam findings, and any diagnostic results supporting the discharge/admit diagnosis, lab results, radiology results, the need to transfer to another facility, for higher level of care. ED course: Discussed case with Dr. Maldonado and she accepts patient to the emergency department. Discussed plan for transfer with patient and she understands agrees with plan. Patient remains in stable condition in the emergency department. Patient speaking full sentences, in no apparent distress. 06/19 10:57 Order name: Type And Screen ms3 06/19 10:04 Order name: Basic Metabolic Panel; Complete Time: 10:56 ms3 06/19 10:04 Order name: CBC with Diff ms3 06/19 10:04 Order name: D-Dimer; Complete Time: 10:56 ms3 06/19 10:04 Order name: Magnesium; Complete Time: 10:56 ms3 06/19 10:04 Order name: NT PRO-BNP; Complete Time: 10:56 ms3 06/19 10:04 Order name: Troponin HS; Complete Time: 10:56 ms3 06/19 10:04 Order name: SARS RAPID; Complete Time: 10:56 ms3 06/19 10:04 Order name: Flu; Complete Time: 10:56 ms3 06/19 11:42 Order name: Packed RBC Leukored EDMS 06/19 12:11 Order name: ABO/RH no charge; Complete Time: 12:27 EDMS 06/19 12:45 Order name: Manual Differential EDMS 06/19 10:04 Order name: XRAY Chest (1 view); Complete Time: 10:56 ms3 06/19 10:04 Order name: Cardiac monitoring; Complete Time: 10:29 ms3 06/19 10:04 Order name: EKG - Nurse/Tech; Complete Time: 10:29 ms3 06/19 10:04 Order name: IV Saline Lock; Complete Time: 10:29 ms3 06/19 10:04 Order name: Labs collected and sent; Complete Time: 10:29 ms3 06/19 10:04 Order name: O2 Per Protocol; Complete Time: 10:29 ms3 06/19 10:04 Order name: O2 Sat Monitoring; Complete Time: 10:29 ms3 EC:51 Rate is 84 beats/min. Rhythm is irregularly irregular. QRS [place] is Normal. QRS interval ms3 is normal. Clinical impression: Atrial Fibrillation. Interpreted by me. Reviewed by me. Administered Medications: 12:10 Drug: Furosemide IVP 40 mg IVP once; give over 2 minutes Route: IVP; Site: right rs5 antecubital; 12:30 Follow up: Response: No adverse reaction rs5 Disposition: 11:51 Critical Care:. ms3 Disposition Summary: 06/19/24 11:04 Transfer Ordered Notes: Transfer Location: [facility] ms3 Reason: Higher level of care ms3 Condition: Stable ms3 Problem: new ms3 Symptoms: are unchanged ms3 Accepting Physician: Dr Maldonado(06/19/24 13:47) rs5 Diagnosis - Rectal bleeding ms3 - anemia ms3 - hyponatremia ms3 - Heart failure, unspecified ms3 Forms: - Medication Reconciliation Form ms3 - SBAR form ms3 Critical care time excluding procedures: 11:51 Critical care time: Bedside Care: 35 minutes, Consultation: 5 minutes, Family ms3 Intervention: 10 minutes. Total time: 50 minutes Signatures: Dispatcher [employer] EDMS Irma Barnes RN RN Segundo Miller, DO DO ms3 Michele Ham RN RN rs5 Corrections: (The following items were deleted from the chart) 10:04 10:04 Chest Single View+RAD.RAD.BRZ ordered. EDMS EDMS 10:04 10:04 SARS-COV-2 Antigen Rapid+I.LAB.BRZ ordered. EDMS EDMS 10:04 10:04 Influenza Screen (A \T\ B)+BA.LAB.BRZ ordered. EDMS EDMS 11:37 11:04 ms3 ms3 13:47 11:37 Erica ms3 rs5
[2024-06-19] MEDS ORDERED: FUROSEMIDE 40 MG/4 ML VIAL ONE (12:04)
[2024-06-19] MEDS ORDERED: NA CHLORIDE 0.9% 250 ML ONE (12:38)
[2024-06-19 12:49] LABS: Differential Total Cells Count 100; Lymphocytes 7 % (15-42); Monocytes 7 % (0-10); Segmented Neutrophils 86 % (40-80)
[2024-06-19 12:50] LABS: Anisocytosis 1+; Blood Morphology Comment NOTED (NOT SEEN); Hypochromasia 3+; Microcytosis 3+; Nucleated Red Blood Cells 2 /100WBC; Ovalocytes 1+; Platelet Estimate ADEQ; Platelets, Giant PRESENT; Polychromasia 1+
[2024-06-19 12:51] LABS: ACANTHOCYTE 1+
[2024-06-19 14:04] VITALS: BP 113/69; TEMP 97.8; O2SAT 98
--- OUTSIDE RECORDS SUMMARY | 2024-06-22 08:32 | XMS REPORT | Continuity of Care Document ---
Author Name Unknown Address [address] [place] [address] [facility] thconnect Address [address] [place] [address] Care Team Providers Care Personnel Recruiter Name Role Phone RAUL BUNDY JR Primary Care Physician PHANI Lew Attending Clinician Unavailable PHANI BENNETT Attending Clinician Unavailable SAMUEL GARCIA Attending Clinician UnavailSamuel Coulter Attending Clinician [phone] Unknown, Attending Attending Clinician Unavailab Chris Winkler Attending Clinician Unavailable Chris Delgadillo Admitting Clinician Unavailable Payers Payer Name Policy Type Policy Number Effective Date Expirati on Date Source [facility] [id number] 2017 00:00:00 Problems Condition Name Condition Details Condition Category Status Onset Date Resolution Date Last Treatment Date Treating Clinician Comments Source Tongue biting Tongue biting Disease Active 05-05 00:00: 00 [facility] Essential hypertensi on Essential hypertensi on Disease Active 02-15 00:00: 00 [facility] Allergies, Adverse Reactions, Alerts Allergy Name Allergy Type Status Severity Reaction(s) Onset Date Inactive Date Treating Clinician Comments Source diazepam DA Active MO N/V 2023-0 4-15 00:00: 00 [facility] alprazol am DA Active MO N/V 4-15 00:00: 00 [facility] codeine DA Active MO N/V 4-15 00:00: 00 [facility] CODEINE DRUG INGREDI Active Unknown-Cmnt 2014-11 00:00: 00 [facility] DIAZEPAM DRUG INGREDI Active Unknown-Cmnt 2014-11 00:00: 00 [facility] Codeine Propensi ty to adverse reaction s Active Unknown - See comments 2014-11 00:00: 00 [facility] Diazepam Propensi ty to adverse reaction s Active Unknown - See comments 2014-11 00:00: 00 [facility] diazepam DA Active MO N/V 8-10 00:00: 00 [facility] alprazol am DA Active MO N/V 8-10 00:00: 00 [facility] codeine DA Active MO N/V 8-10 00:00: 00 [facility] Social History Social Habit Start Date Stop Date Quantity Comments Source History of tobacco use Cigarette Smoker [facility] Tobacco use and exposure 2024-05-05 00:00:00 2024-05-05 00:00:00 Smokeless tobacco non-user [facility] Alcoholic beverage intake 2024-05-05 00:00:00 2024-05-05 00:00:00 Current drinker of alcohol (finding) [facility] History of Social function 2024-05-05 00:00:00 2024-05-05 00:00:00 [facility] Tobacco Comment 2024-05-05 00:00:00 2024-05-05 00:00:00 now 0.5 daily since being ill; [facility] Alcohol Comment 2015-08-25 00:00:00 2015-08-25 00:00:00 10-12 cans of beer/day [facility] Sex assigned at 1960 00:00:00 1960 00:00:00 [facility] Smoking Status Start Date Stop Date Source Smokes tobacco daily 2024-05-05 00:00:00 [facility] Medications Ordered Medication Name Filled Medication Name Start Date Stop Date Current Medication? Ordering Clinician Indication Dosage Frequency Signature (SIG) Comments Components Source amLODIPine 5 mg tablet 05-05 16:07: 14 Yes 5mg Take 1 tablet by mouth in the morning. [facility] furosemide 20 mg tablet 05-05 16:07: 14 Yes 20mg Take 1 tablet by mouth in the morning. [facility] losartan 100 mg tablet 05-05 16:07: 14 Yes 100mg Take 1 tablet by mouth in the morning. [facility] hydrALAZINE 100 mg tablet 05-05 16:07: 14 Yes 100mg Take 1 tablet by mouth every 6 (six) hours. [facility] metoprolol tartrate 100 mg tablet 05-05 16:07: 14 Yes 100mg Take 1 tablet by mouth in the morning and 1 tablet in the evening. [facility] atorvastati n 80 mg tablet 05-05 16:07: 14 Yes 80mg Take 1 tablet by mouth at bedtime. [facility] gabapentin ER 300 mg tablet, extended release 24 hr 05-05 16:07: 14 Yes 300mg Take 1 tablet by mouth in the morning. [facility] XARELTO 20 mg tablet 524 00:00: 00 Yes 20mg Take 1 tablet by mouth in the morning. [facility] clopidogreL 75 mg tablet 29 00:00: 00 Yes 75mg Take 1 tablet by mouth in the morning. [facility] valsartan (DIOVAN) 80 mg tablet 4-05 00:00: 00 05-05 00:00 :00 No TAKE 1 TABLET BY MOUTH EVERY DAY [facility] cefdinir (OMNICEF) 300 mg capsule 3-17 08:22: 47 05-05 00:00 :00 No 300mg Take 1 capsule by mouth in the morning and 1 capsule in the evening. [facility] omega-3 fatty acids-vitam in E (FISH OIL) 1,000 mg capsule 2014-11 022 08:40: 00 05-05 00:00 :00 No 1g Take 1 g by mouth daily. [facility] Vital Signs Vital Name Observation Time Observation Value Comments S claudia Systolic blood pressure 2024-05-05 21:01:00 142 mm[Hg] [facility] Diastolic blood pressure 2024-05-05 21:01:00 78 mm[Hg] [facility] Heart rate 2024-05-05 21:01:00 91 /min [facility] Body temperature 2024-05-05 21:01:00 36.89 [place] Respiratory rate 2024-05-05 21:01:00 18 /min [facility] Oxygen saturation in Arterial blood by Pulse oximetry 2024-05-05 21:01:00 96 /min [facility] Body height 2024-05-05 19:49:00 177.8 cm [facility] Body weight 2024-05-05 19:49:00 109.317 kg [facility] BMI 2024-05-05 19:49:00 34.58 kg/m2 [facility] Systolic blood pressure 2024-05-05 18:55:00 138 mm[Hg] [facility] Diastolic blood pressure 2024-05-05 18:55:00 69 mm[Hg] [facility] Heart rate 2024-05-05 18:55:00 103 /min [facility] Body temperature 2024-05-05 18:55:00 36.22 [place] Respiratory rate 2024-05-05 18:55:00 16 /min [facility] Body weight 2024-05-05 18:55:00 109.317 kg [facility] BMI 2024-05-05 18:55:00 34.58 kg/m2 [facility] Oxygen saturation in Arterial blood by Pulse oximetry 2024-05-05 18:55:00 99 /min [facility] Encounters Start Date/Time End Date/Time Encounter Type Admission Type Attending [facility] Care Department Encounter ID Source 2024-05-05 14:52:00 2024-05-05 16:07:00 Emergency X PHANI BENNETT [facility] ERT [id number] [facility] 2024-05-05 14:52:00 2024-05-05 16:07:00 Emergency Phani Bennett [facility] [id number] [facility] 2024-05-05 13:40:00 2024-05-05 14:55:31 Outpatient R SAMUEL GARCIA [facility] [id number] [facility] 2024-05-05 13:40:00 2024-05-05 14:00:00 Urgent Care Samuel Garcia, Attending [facility] [id number] [facility] 2023-02-16 05:17:00 2023-02-17 11:08:00 Inpatient Keith Garretted [facility] [id number] [facility] Results Test Description Test Time Test Comments Results Result Co mments Source [id number] 05:45:00* Test Item Value Reference Range Interpretation Comme nts PHOSPHOROUS (test code = PHOS) 2.5 MG/DL 2.5-4.9 N [id number] 05:45:00* Test Item Value Reference Range Interpretation Comme nts MAGNESIUM (test code = MAG) 1.7 MG/DL 1.8-2.4 L GLYCOSYLATED HEMOGLOBIN [id number] 05:45:00* Test Item Value Reference Range Interpretation Comme nts GLYCOSYLATED HEMOGLOBIN (HA1 C) (test code = GLYHGB) 5.8 % A1C 0.0-5.7 H ESTIMATED AVERAGE GLUCOSE (t est code = EAG) 120 MG/DLest CBC W/AUTO [id number] 05:22:00* Test Item Value Reference Range Interpretation Comme nts WHITE BLOOD CELL (test code = WBC) 5.6 K/mm3 3.5-11.0 N RED BLOOD CELL (test code = RBC) 5.46 M/mm3 4.70-6.10 N HEMOGLOBIN (test code = HGB) 16.1 G/DL 10.4-14.9 H HEMATOCRIT (test code = HCT) 48.8 % 31.5-44.1 H MEAN CELL VOLUME (test code = MCV) 89.4 Fl 84.5-98.6 N MEAN CELL HGB (test code = MCH) 29.5 pg 27.0-34.2 N MEAN CELL HGB CONCETRATION (test code = MCHC) 33.0 G/DL 31.5-34.0 N RED CELL DISTRIBUTION WIDTH (test code = RDW) 14.8 SD 11.5-14.5 H PLATELET COUNT (test code = PLT) 204 K/mm3 150-450 N MEAN PLATELET VOLUME (test c ode = MPV) 10.10 fL 7.0-10.5 N NEUTROPHIL % (test code = NT%) 68.6 % 40-76 IMMATURE GRANULOCYTE % (test code = IG%) 0.2 % 0.0-5.0 N LYMPHOCYTE % (test code = LY%) 19.6 % 20.5-51.1 L MONOCYTE % (test code = MO%) 9.8 % 1.7-9.3 H EOSINOPHIL % (test code = EO%) 1.3 % 0.0-6.0 N BASOPHIL % (test code = BA%) 0.5 % 0.0-2.0 N NUCLEATED RBC % (test code = NRBC%) 0.0 /100WBC% 0.0-1.0 N NEUTROPHIL # (test code = NT#) 3.8 K/mm3 1.8-7.6 N IMMATURE GRANULOCYTE # (test code = IG#) 0.01 x10 3/uL 0.00-0.03 N LYMPHOCYTE # (test code = LY#) 1.1 K/mm3 0.6-3.2 N MONOCYTE # (test code = MO#) 0.6 K/mm3 0.3-1.1 N EOSINOPHIL # (test code = EO#) 0.1 K/mm3 0.0-0.4 N BASOPHIL # (test code = BA#) 0.0 K/mm3 0.0-0.1 N NUCLEATED RBC # (test code = NRBC#) 0.0 K/mm3 0.0-0.1 N MANUAL DIFF REQUIRED (test c ode = MDIFF) NO DIFF/SCN CRITERIA COAGULATION TIME [id number] 11:38:00* Test Item Value Reference Range Interpretation Comme nts COAGULATION TIME ACTIVATED ( test code = ACT) 275 SEC 74-125 H COVID 19 INHOUSE [id number] 06:31:00* Test Item Value Reference Range Interpretation Comme nts COVID 19 INHOUSE AG (test code = [id number]) NEGATIVE Negative Per choker hooker , negative results should be treated aspresumptive and, if inconsistent with clinical signs andsymptoms or necessary for patient management, should betested with an alternative molecular assay. Negative resultsdo not preclude SARS-CoV-2 infection and should not be usedas the sole basis for patient management decisions. Negative results should be considered in the context of apatient's recent exposures, history, presence of clinicalsigns and symptoms consistent with COVID-19. COMPREHENSIVE METABOLIC [id number] 06:25:00* Test Item Value Reference Range Interpretation Comme nts SODIUM (test code = NA) 137 mmol/L 134-147 N POTASSIUM (test code = K) 3.4 mmol/L 3.4-5.0 N CHLORIDE (test code = CL) 101 mmol/L 100-108 N CARBON DIOXIDE (test code = CO2) 33 mmol/L 21-32 H ANION GAP (test code = GAP) 3.0 GAP calc 4.0-15.0 L GLUCOSE (test code = GLU) 116 MG/DL 70-110 H BLOOD UREA NITROGEN (test code = BUN) 5 MG/DL 7-18 L GLOMERULAR FILTRATION RATE (test code = GFR) >=60 max estimate estGFR >60 The Glomerular Filtration Rate is a calculated parameterbased on serum Creatinine, patient age and sex. GFR valuesless than 60 mL/min/1.73 square meters are indicative ofChronic Kidney Disease. Values less than 15 mL/min/1.73square meters indicate Kidney failure. The calculation forGFR is based on the CKD-EPI (202) calculation. This formulais race indifferent and is the recommended formula for GFRby the National Kidney Foundation for Adults.The GFR will not calculate if the sex is unknown or if thepatient's age is <18 years. CREATININE (test code = CREAT) 0.5 MG/DL 0.6-1.0 L TOTAL PROTEIN (test code = PROT) 7.1 G/DL 6.4-8.2 N ALBUMIN (test code = ALB) 3.6 G/DL 3.4-5.0 N GLOBULIN (test code = GLOB) 3.5 GM/dL ALBUMIN/GLOBULIN RATIO (test code = A/G) 1.0 RATIO 1.2-2.2 L CALCIUM (test code = CA) 9.3 MG/DL 8.5-10.1 N BILIRUBIN TOTAL (test code = BILT) 0.50 MG/DL 0.2-1.2 N SGOT/AST (test code = AST) 22 Unit/L 15-37 N SGPT/ALT (test code = ALT) 25 Unit/L 12-78 N ALKALINE PHOSPHATASE TOTAL (test code = ALKP) 102 Unit/L 45-117 N LIPID PROFILE (CORONARY RISK)2023-02-16 06:25:00* Test Item Value Reference Range Interpretation Comme nts TRIGLYCERIDES (test code = TRIG) 94 MG/DL 0-150 N CHOLESTEROL (test code = CHOL) 136 MG/DL 133-200 N CHOLESTEROL/HDL RATIO (test code = CHOLHDL) 3.02 RATIO See_Comment RISK ASSOCIATED WITH CHOL/HDL RATIOS: RISK MALE FEMALE1/2 AVERAGE 3.43 3.27AVERAGE 4.97 4.442X AVERAGE 9.55 7.053X AVERAGE 23.39 11.04 NOTE THAT THE REFERENCE VALUE IS RELATED TO RISK LEVELS ASRECOMMENDED BY THE [facility]ATIONAL [facility], [facility]G, AND [facility]LOOD IN[facility]. [Automated message] The system which generated this result transmitted reference range: 0-. The reference range was not used to interpret this result as normal/abnormal. HDL CHOLESTEROL (test code = HDL) 45 MG/DL 40-59 N NON-HDL CHOLESTEROL (test code = NHDL) 91 mg/dL <130 LIPOPROTEIN LDL (test code = LDL) 84 MG/DL 0-129 N <100 [id number] 0 - 129 NEAR OPTIMAL/ABOVE [id number] - 159 FAESEQWELS000 - 189 HIGH>OR= 190 VERY HIGHNOTE THAT GUIDELINES ARE PROVIDED BY NATIONAL CHOLESTEROLEDUCATION PROGRAM ADULT TREATMENT PANEL III LDL/HDL (test code = LDL/HDL) 1.86 Ratio See_Comment N [Automated [employer]] The system which generated this result transmitted reference range: 1.48-3.22 Avg. The reference range was not used to interpret this result as normal/abnormal. [id number] 06:25:00* Test Item Value Reference Range Interpretation Comme nts MAGNESIUM (test code = MAG) 1.6 MG/DL 1.8-2.4 L PROTHROMBIN [id number] 06:20:00* Test Item Value Reference Range Interpretation Comme nts PT PATIENT (test code = PTP) 11.4 SECONDS 9.3-12.9 N INTERNATIONAL NORMAL RATIO (test code = INR) 1.03 INR Unit 0.8-1.2 N TARGET INR BY INDICATION Indication INR1. Prophylaxis of venous thrombosis 2.0 - 3.0 (orthopedic surgery), Prophylaxis of venous thrombosis (other than high-risk surgery), Treatment of Deep Vein Thrombosis/Pulmonary Embolism, Prevention of systemic embolism - Tissue heart valves, Acute Myocardial Infarction (to prevent systemic embolism), Valvular heart disease, Acute Myocardial Infarction (to prevent systemic embolism), Valvular heart disease, Atrial Fibrillation, Bileaflet mechanical valve in aortic position.2. Mechanical prosthetic valves (high risk), 2.5 - 3.5 Presence of Lupus Anticoagulant or Antiphospholipid Antibodies, Prevention of systemic embolism - Acute Myocardial Infarction (to prevent recurrent infarct). THROMBOPLASTIN TIME [id number] 06:20:00* Test Item Value Reference Range Interpretation Comme nts THROMBOPLASTIN TIME PARTIAL (test code = PTT) 33.4 SECONDS 26-35 N CBC W/AUTO [id number] 06:11:00* Test Item Value Reference Range Interpretation Comme nts WHITE BLOOD CELL (test code = WBC) 5.2 K/mm3 3.5-11.0 N RED BLOOD CELL (test code = RBC) 5.63 M/mm3 4.70-6.10 N HEMOGLOBIN (test code = HGB) 16.8 G/DL 10.4-14.9 H HEMATOCRIT (test code = HCT) 49.6 % 31.5-44.1 H MEAN CELL VOLUME (test code = MCV) 88.1 Fl 84.5-98.6 N MEAN CELL HGB (test code = MCH) 29.8 pg 27.0-34.2 N MEAN CELL HGB CONCETRATION (test code = MCHC) 33.9 G/DL 31.5-34.0 N RED CELL DISTRIBUTION WIDTH (test code = RDW) 14.6 SD 11.5-14.5 H PLATELET COUNT (test code = PLT) 229 K/mm3 150-450 N MEAN PLATELET VOLUME (test c ode = MPV) 10.10 fL 7.0-10.5 N NEUTROPHIL % (test code = NT%) 61.1 % 40-76 N IMMATURE GRANULOCYTE % (test code = IG%) 0.4 % 0.0-5.0 N LYMPHOCYTE % (test code = LY%) 25.2 % 20.5-51.1 N MONOCYTE % (test code = MO%) 10.8 % 1.7-9.3 H EOSINOPHIL % (test code = EO%) 1.5 % 0.0-6.0 N BASOPHIL % (test code = BA%) 1.0 % 0.0-2.0 N NUCLEATED RBC % (test code = NRBC%) 0.0 /100WBC% 0.0-1.0 N NEUTROPHIL # (test code = NT#) 3.2 K/mm3 1.8-7.6 N IMMATURE GRANULOCYTE # (test code = IG#) 0.02 x10 3/uL 0.00-0.03 N LYMPHOCYTE # (test code = LY#) 1.3 K/mm3 0.6-3.2 N MONOCYTE # (test code = MO#) 0.6 K/mm3 0.3-1.1 N EOSINOPHIL # (test code = EO#) 0.1 K/mm3 0.0-0.4 N BASOPHIL # (test code = BA#) 0.1 K/mm3 0.0-0.1 N NUCLEATED RBC # (test code = NRBC#) 0.0 K/mm3 0.0-0.1 N MANUAL DIFF REQUIRED (test c ode = MDIFF) NO DIFF/SCN CRITERIA Notes Date/Time Note Provider Source 2024-05-05 16:04:05 Pt discharged with diagnosis of tongue laceration, encouraged hydration. Printed and verbal instructions reviewed with and given to pt. Pt. verbalized understanding of teaching and recommended follow-up. Denies questions or concerns at this time. Pt ambulatory at discharge. Appears in no apparent distress. No ataxia noted. Accompanied by . Advised to seek medical attention for new/prolonged/worsening of symptoms, Symptoms improved. Anna Wolff RN [facility] 2024-05-05 14:47:52 CC: patient presents to the ER with complaints of tongue swelling that began around 11 am, states she bite her tongue which caused bleeding and swelling. Denies difficulty breathing. PMHx: see history Awake, alert, oriented, resp reg unlabored, skin warm and dry, color appropriate for race, moves all ext without difficulty, amb without assistance. Appears in no distress. Daphney Murillo RN [facility] 2023-02-17 09:32:00 [facility] Hospitalist Discharge Summary REPORT#:[id number] REPORT STATUS: Signed DATE:02/17/23 TIME:931 PATIENT: KIMMIE RODRIGUEZ UNIT #: [id number] ROOM/BED: [place] [address] : 60 AGE: 62 SEX: F ATTEND: Chris Delgadillo MD ADM AUTHOR: Donna Valdivia PA * ALL edits or amendments must be made on the electronic/computer document * Donna Valdivia 02/17/23 0932: General Information Date of admission: Observation Start Date: 02/16/23 Date of admission: 02/16/23 Discharge date: 02/17/23 Discharge diagnosis: CAD s/p PCI to RCA and LAD Hypomagnesemia Prediabetes Hypertension Hyperlipidemia Hx of paroxysmal Afib on Xarelto Hospital course: 62 y/o female with PMHx of HTN, HLD, Afib on Xarelto was admitted for observation s/p [facility] with stents placed to RCA and LAD by Cardiology Dr. Araiza yesterday. Pt has been doing well, denies any complaints. Lab work was notable for mild hypomagnesemia Mag 1.7, plan for mag infusion but pt declined, prefers to take oral supplementation. She was also noted to have prediabetes with HgbA1c 5.8, she states she is being followed by her PCP for this. Cardiology recs to start DAPT with Plavix and aspirin, in addition to her home Xarelto for 6 months. Will also continue current home meds of amlodipine, hydralazine, metoprolol and lipitor. Will DC home with close PCP and Cardiology follow up. Med Rec Med Rec Discharge meds: Continue taking these medications: amLODIPine (NORVASC) 5 MG TAB 5 MILLIGRAM ORAL DAILY. RIVAROXABAN (XARELTO) 20 MG TAB 20 MILLIGRAM ORAL DAILY. METOPROLOL TARTRATE (LOPRESSOR) 100 MG TAB 100 MILLIGRAM ORAL TWICE DAILY. hydrALAZINE (APRESOLINE) 100 MG TAB 100 MILLIGRAM ORAL THREE TIMES A DAY. FUROSEMIDE (LASIX) 20 MG TAB 20 MILLIGRAM ORAL DAILY. LOSARTAN (COZAAR) 100 MG TAB 100 MILLIGRAM ORAL DAILY. ATORVASTATIN (LIPITOR) 40 MG TAB 40 MILLIGRAM ORAL BEDTIME. GABAPENTIN (NEURONTIN) 300 MG CAP 300 MILLIGRAM ORAL TWICE DAILY. clonazePAM (KlonoPIN) 0.5 MG TAB 0.5 MILLIGRAM ORAL DAILY. as needed for ANXIETY CHOLECALCIFEROL (VITAMIN D3) (VITAMIN D3) 50 MCG (2,000 UNIT) CAP 50,000 MICROGRAM ORAL WEEKLY CYANOCOBALAMIN (VITAMIN B-12) 1,000 MCG TAB 1,000 MICROGRAM ORAL DAILY. MULTIVITAMIN (MULTIPLE VITAMIN) 1 TAB TAB 1 TABLET ORAL DAILY. Start taking the following new medications: CLOPIDOGREL (PLAVIX) 75 MG TAB 75 MILLIGRAM ORAL DAILY. Qty = 30 No Refills ASPIRIN EC (ECOTRIN) 81 MG TAB.EC 81 MILLIGRAM ORAL DAILY. Qty = 30 No Refills MAGNESIUM OXIDE (MAG-OXIDE) 400 MG TAB 400 MILLIGRAM ORAL DAILY. Qty = 30 No Refills Objective VS/I O Last Documented: Result Date Time Pulse Ox 97 02/17 733 B/P 157/96 02/17 733 B/P Mean 116.3 02/17 733 O2 Delivery Room air 02/17 733 Temp 97.7 02/17 733 Pulse 81 02/17 733 Resp 15 02/17 733 O2 Flow Rate 2 02/16 1225 24 hour I O ending at 0700: 02/17 0700 02/16 1900 Intake Total 400 Output Total Balance 400 Intake, Oral 400 Number Voids 2 General appearance: alert, awake, no acute distress Head/Eyes: atraumatic, normocephalic ENT: moist mucosal membranes, normal dentition Cardiovascular: normal heart sounds, regular rate rhythm Respiratory: symmetric expansion, no distress Abdomen: non-tender, soft Extremities: moves all, no edema Neuro/HR PAYROLL COORDINATOR: alert, normal speech Skin: dry, intact Results Findings/Data: Laboratory Tests: 02/17 02/17 0504 0504 Chemistry Sodium (134 - 147 mmol/L) 137 Potassium (3.4 - 5.0 mmol/L) 3.6 Chloride (100 - 108 mmol/L) 102 Carbon Dioxide (21 - 32 mmol/L) 31 Anion Gap (4.0 - 15.0 GAP calc) 4.0 BUN (7 - 18 MG/DL) 7 Creatinine (0.6 - 1.0 MG/DL) 0.5 L Glomerular Filtr Rate (>60 estGFR) >=60 max estimate Glucose (70 - 110 MG/DL) 118 H Hemoglobin A1c (0.0 - 5.7 % A1C) 5.8 H Estim Average Glucose (MG/DLest) 120 Calcium (8.5 - 10.1 MG/DL) 8.8 Phosphorus (2.5 - 4.9 MG/DL) 2.5 Magnesium (1.8 - 2.4 MG/DL) 1.7 L Hematology WBC (3.5 - 11.0 K/mm3) 5.6 RBC (4.70 - 6.10 M/mm3) 5.46 Hgb (10.4 - 14.9 G/DL) 16.1 H Hct (31.5 - 44.1 %) 48.8 H MCV (84.5 - 98.6 Fl) 89.4 MCH (27.0 - 34.2 pg) 29.5 MCHC (31.5 - 34.0 G/DL) 33.0 RDW (11.5 - 14.5 SD) 14.8 H Plt Count (150 - 450 K/mm3) 204 MPV (7.0 - 10.5 fL) 10.10 Neut % (Auto) (40 - 76 %) 68.6 Lymph % (Auto) (20.5 - 51.1 %) 19.6 L Childress % (Auto) (1.7 - 9.3 %) 9.8 H Eos % (Auto) (0.0 - 6.0 %) 1.3 Baso % (Auto) (0.0 - 2.0 %) 0.5 Neut # (Auto) (1.8 - 7.6 K/mm3) 3.8 Lymph # (Auto) (0.6 - 3.2 K/mm3) 1.1 Childress # (Auto) (0.3 - 1.1 K/mm3) 0.6 Eos # (Auto) (0.0 - 0.4 K/mm3) 0.1 Baso # (Auto) (0.0 - 0.1 K/mm3) 0.0 Abs Immat Gran (auto) (0.00 - 0.03 x10 3/uL) 0.01 Add Manual Diff (CRITERIA DIFF/SCN) NO Immature Gran % (0.0 - 5.0 %) 0.2 Nucleated RBC % (0.0 - 1.0 /100WBC%) 0.0 02/16 1131 Coagulation Activated Coag Time (74 - 125 SEC) 275 H Discharge Instructions PCP PCP follow-up: PCP: DOES_NOT KNOW Discharge to: Home/Self Care Additional Discharge Routines: PCP Follow-Up, Visual Arts Teacher Follow-Up Diet: Cardiac Notify PCP of these S/S: Repeat BMP, Mag, Phos in 1-2 weeks Discharge management: face to face encounter, discharge time 40 minutes Follow-up Appointments PCP follow-up: PCP: DOES_NOT KNOW PCP follow up timeframe: In 1-2 weeks Consulting provider 1: Provider 1: Daniel Araiza MD Cardiology Specialty: CardiologyInterventional Consult follow up timeframe: In 1-2 weeks Talon Faye 02/17/23 1134: Attestations Physician Attestation Agree w/findings plan: Appreciate note from SKIDDER LOADER Agree with the history and physical findings Lab works noted Imaging noted as well Findings were discussed with the SHARATH and Staff at 1014 at 1135 RPT #: [id number] END OF REPORT [facility] 2023-02-17 04:52:00 [id number] [address] PATIENT NAME: KIMMIE RODRIGUEZ ADMIT DATE: 02/16/23 ACCOUNT NO: [id number] ROOM NO: L.S210 AGE: 62 REPORT TYPE: eELECTROCARDIOGRAM SEX: F ADMITTING PHYSICIAN: Chris Delgadillo MD ATTENDING PHYSICIAN: Chris Delgadillo MD Order: [id number] Test Reason : CAD Test Date/Time Stamp: SatFeb 17 2023 04:52:11 Blood Pressure : / mmHG Vent. Rate : 065 BPM Atrial Rate : 441 BPM P-R Int : 000 ms QRS Dur : 090 ms QT Int : 436 ms P-R-T Axes : 000 031 034 degrees QTc Int : 453 ms Atrial fibrillation Anterior infarct (cited on or before 17-FEB-2023) Abnormal ECG When compared with ECG of 17-FEB-2023 04:51, No significant change was found Confirmed by DANIEL ARAIZA ([id number]) on 02/17/2023 8:09:08 AM Referred By: Daniel Araiza Confirmed by:DANIEL ARAIZA at 0809 PATIENT NAME: KIMMIE RODRIGUEZ [facility] 2023-02-17 04:52:00 [id number] [address] PATIENT NAME: KIMMIE RODRIGUEZ ADMIT DATE: 02/16/23 ACCOUNT NO: [id number] ROOM NO: L.S210 AGE: 62 REPORT TYPE: eELECTROCARDIOGRAM SEX: F ADMITTING PHYSICIAN: Chris Delgadillo MD ATTENDING PHYSICIAN: Chris Delgadillo MD Order: [id number] Test Reason : CAD Test Date/Time Stamp: SatFeb 17 2023 04:52:50 Blood Pressure : / mmHG Vent. Rate : 074 BPM Atrial Rate : 083 BPM P-R Int : 000 ms QRS Dur : 092 ms QT Int : 440 ms P-R-T Axes : 000 027 033 degrees QTc Int : 488 ms Atrial fibrillation Incomplete right bundle branch block Anterior infarct (cited on or before 17-FEB-2023) Abnormal ECG When compared with ECG of 17-FEB-2023 04:52, (Unconfirmed) No significant change was found Confirmed by Rusty Aguirre ([id number]) on 02/22/2023 7:45:56 AM Referred By: Daniel Araiza Confirmed by:Rusty Aguirre at 0745 PATIENT NAME: KIMMIE RODRIGUEZ [facility] 2023-02-17 04:51:00 [id number] [place] [id number] PATIENT NAME: KIMMIE RODRIGUEZ ADMIT DATE: 02/16/23 ACCOUNT NO: [id number] ROOM NO: [facility] AGE: 62 REPORT TYPE: eELECTROCARDIOGRAM SEX: F ADMITTING PHYSICIAN: Chris Delgadillo MD ATTENDING PHYSICIAN: Chris Delgadillo MD Order: [id number] Test Reason : CAD Test Date/Time Stamp: SatFeb 17 2023 04:51:49 Blood Pressure : / mmHG Vent. Rate : 076 BPM Atrial Rate : 250 BPM P-R Int : 000 ms QRS Dur : 102 ms QT Int : 428 ms P-R-T Axes : 000 016 009 degrees QTc Int : 481 ms Atrial fibrillation Incomplete right bundle branch block Anterior infarct , age undetermined Abnormal ECG When compared with ECG of 16-FEB-2023 14:44, No significant change was found Confirmed by DANIEL ARAIZA ([id number]) on 02/17/2023 8:08:47 AM Referred By: Daniel Araiza Confirmed by:DANIEL ARAIZA at 0808 PATIENT NAME: KIMMIE RODRIGUEZ [facility] 2023-02-16 14:44:00 [id number] [place] [id number] PATIENT NAME: KIMMIE RODRIGUEZ ADMIT DATE: 02/16/23 ACCOUNT NO: [id number] ROOM NO: [facility] AGE: 62 REPORT TYPE: eELECTROCARDIOGRAM SEX: F ADMITTING PHYSICIAN: Chris Delgadillo MD ATTENDING PHYSICIAN: Chris Delgadillo MD Order: [id number] Test Reason : POST PCI Test Date/Time Stamp: [facility] Feb 16 2023 14:44:39 Blood Pressure : / mmHG Vent. Rate : 084 BPM Atrial Rate : 000 BPM P-R Int : 000 ms QRS Dur : 096 ms QT Int : 400 ms P-R-T Axes : 000 045 018 degrees QTc Int : 472 ms Atrial fibrillation Incomplete right bundle branch block Nonspecific T wave abnormality Prolonged QT Abnormal ECG When compared with ECG of 16-FEB-2023 06:14, Nonspecific T wave abnormality now evident in Inferior leads Confirmed by DANIEL ARAIZA ([id number]) on 02/16/2023 6:29:22 PM Referred By: Daniel Araiza Confirmed by:DANIEL ARAIZA at 1829 PATIENT NAME: KIMMIE RODRIGUEZ [facility]:24:00 [facility]#:[id number] REPORT STATUS: Signed DATE:02/16/23 TIME:1224 PATIENT: KIMMIE RODRIGUEZ UNIT #: [id number] ROOM/BED: [place] [id number] : 60 AGE: 62 SEX: F ATTEND: Chris Delgadillo MD ADM AUTHOR: Donna Valdiiva * ALL edits or amendments must be made on the electronic/computer document * Donna Valdivia 02/16/23 1224: History of Present Illness HPI Chief complaint: chest pain HPI: 62 y/o female with PMHx of HTN, HLD, Afib on Xarelto was admitted for observation s/p C with stents placed to RCA and LAD by Cardiology Dr. Araiza this morning. Pt was evaluated in PACU, she reports doing well and denies any complaints currently. History Family History Family history: Reports: Hypertension. Social History Smoking status for patients 13 years old or older: Current every day smoker Date last smoked: 02/14/23 Medication/Allergy-Vaccine Hx Medications: Home Medications: amLODIPine (NORVASC) 5 MG PO DAILY RIVAROXABAN (XARELTO) 20 MG PO DAILY METOPROLOL TARTRATE (LOPRESSOR) 100 MG PO BID hydrALAZINE (APRESOLINE) 100 MG PO TID FUROSEMIDE (LASIX) 20 MG PO DAILY LOSARTAN (COZAAR) 100 MG PO DAILY ATORVASTATIN (LIPITOR) 40 MG PO BEDTIME GABAPENTIN (NEURONTIN) 300 MG PO BID clonazePAM (KlonoPIN) 0.5 MG PO DAILY PRN ANXIETY CHOLECALCIFEROL (VITAMIN D3) (VITAMIN D3) 50,000 MCG PO WEEKLY CYANOCOBALAMIN (VITAMIN B-12) 1,000 MCG PO DAILY MULTIVITAMIN (MULTIPLE VITAMIN) 1 TAB PO DAILY Allergies: Coded Allergies: alprazolam (From XANAX) (Intermediate, N/V 02/16/23) codeine (Intermediate, N/V 02/16/23) diazepam (From VALIUM) (Intermediate, N/V 02/16/23) Review of Systems Constitutional: Denies: chills, fever. Skin: Denies: bruising, rash. Eyes: Denies: visual loss/blurred, eye pain. ENT: Denies: nasal congestion, sore throat. Respiratory: Denies: productive cough (sputum), SOB. Cardiovascular: Denies: chest pain, palpitations. GI: Denies: nausea, vomiting. : Denies: dysuria, hematuria. Musculoskeletal: Denies: extremity pain, extremity swelling. Neuro: Denies: headache, syncope. OBJECTIVE VS/I O: Vital Signs Date Temp Pulse Resp B/P B/P Mean Pulse Ox FiO2 02/16 97.0-98.4 90-94 20-21 149-179/58-91 95-98 Last Documented: Result Date Time Pulse Ox 98 02/16 1225 B/P 179/84 02/16 1225 O2 Delivery Nasal cannula 02/16 1225 O2 Flow Rate 2 02/16 1225 Pulse 94 02/16 1225 Resp 21 02/16 1225 Temp 97.0 04/15 1210 24 hour I O ending at 0700: 02/16 0700 14 1900 Intake Total Output Total Balance Patient 90.909 kg Weight Weight Stated/Reported Measurement Method Patient Weight and BMI Weight (kg): 90.909 BMI: 28.8 Medications: Active Meds + DC'd Last 24 Hrs Amlodipine Besylate (NORVASC) 5 MG DAILY PO Aspirin (ECOTRIN) 81 MG DAILY PO Clopidogrel Bisulfate (Plavix) 75 MG DAILY PO Losartan Potassium (COZAAR) 100 MG DAILY PO Atorvastatin Calcium (LIPITOR) 80 MG BEDTIME PO Metoprolol Tartrate (LOPRESSOR) 100 MG BID PO Hydralazine HCl (APRESOLINE) 100 MG TID PO Magnesium Sulfate/Dextrose (MAGNESIUM SULFATE 1 G IN DEXTROSE 5% 100 ML) 100 ML ONCE ONE IV (CKD) Labetalol HCl (TRANDATE) 20 MG ONCE ONE IV (DC) Acetaminophen (TYLENOL) 650 MG Q4H PRN PRN PO Hydrocodone Bitart/Acetaminophen (NORCO 5/325) 1 TAB Q4H PRN PRN PO Ondansetron HCl (ZOFRAN) 4 MG Q4H PRN PRN IV Sodium Chloride (SODIUM CHLORIDE) SALINE FLUSH ASDIR PRN IV Clopidogrel Bisulfate (PLAVIX) 0 .STK-MED ONE .ROUTE (DC) Iopamidol (ISOVUE-300) 0 .STK-MED ONE .ROUTE (DC) Aspirin (ASPIRIN) 0 .STK-MED ONE .ROUTE (DC) Clopidogrel Bisulfate (PLAVIX) 0 .STK-MED ONE .ROUTE (DC) Labetalol HCl (TRANDATE) 0 .STK-MED ONE .ROUTE (DC) Midazolam HCl (VERSED) 0 .STK-MED ONE .ROUTE (DC) Nitroglycerin (NITRO-BID) 0 .STK-MED ONE .ROUTE (DC) Iopamidol (ISOVUE-300) 0 .STK-MED ONE .ROUTE (DC) Heparin Sodium (Porcine) (HEPARIN 1,000 UNITS/NS 500 ML) 1,500 ML .STK-MED ONE IV (DC) Lidocaine HCl (lidocaine HCL) 0 .STK-MED ONE .ROUTE (DC) Fentanyl Citrate (SUBLIMAZE) 0 .STK-MED ONE .ROUTE (DC) Heparin Sodium (Porcine) (HEPARIN SODIUM) 0 .STK-MED ONE .ROUTE (DC) Midazolam HCl (VERSED) 0 .STK-MED ONE .ROUTE (DC) Diphenhydramine HCl (BENADRYL) 25 MG ONCE ONE PO (DC) Sodium Chloride (0.9% Sodium Chloride) 1,000 ML ASDIR IV General appearance: alert, awake, no acute distress Head/Eyes: atraumatic, normocephalic ENT: moist mucosal membranes, normal dentition Cardiovascular: normal heart sounds, regular rate rhythm Respiratory: symmetric expansion, no distress Abdomen: non-tender, soft Extremities: moves all, no edema Neuro/HR PAYROLL COORDINATOR: alert, normal speech Skin: dry, intact Results Findings/Data: Laboratory Tests: 02/16 02/16 1131 0600 Chemistry Sodium (134 - 147 mmol/L) 137 Potassium (3.4 - 5.0 mmol/L) 3.4 Chloride (100 - 108 mmol/L) 101 Carbon Dioxide (21 - 32 mmol/L) 33 H Anion Gap (4.0 - 15.0 GAP calc) 3.0 L BUN (7 - 18 MG/DL) 5 L Creatinine (0.6 - 1.0 MG/DL) 0.5 L Glomerular Filtr Rate (>60 estGFR) >=60 max estimate Glucose (70 - 110 MG/DL) 116 H Calcium (8.5 - 10.1 MG/DL) 9.3 Magnesium (1.8 - 2.4 MG/DL) 1.6 L Total Bilirubin (0.2 - 1.2 MG/DL) 0.50 AST (15 - 37 Unit/L) 22 ALT (12 - 78 Unit/L) 25 Total Alk Phosphatase (45 - 117 Unit/L) 102 Total Protein (6.4 - 8.2 G/DL) 7.1 Albumin (3.4 - 5.0 G/DL) 3.6 Globulin (GM/dL) 3.5 Albumin/Globulin Ratio (1.2 - 2.2 RATIO) 1.0 L Triglycerides (0 - 150 MG/DL) 94 Cholesterol (133 - 200 MG/DL) 136 LDL Cholesterol Measurd (0 - 129 MG/DL) 84 Non-HDL Cholesterol (<130 mg/dL) 91 HDL Cholesterol (40 - 59 MG/DL) 45 LDL/HDL Ratio (1.48 - 3.22 Avg Ratio) 1.86 Cholesterol/HDL Ratio (0 RATIO) 3.02 Coagulation INR (0.8 - 1.2 INR Unit) 1.03 PTT ([place]) (26 - 35 SECONDS) 33.4 PT Patient/Control Mix (9.3 - 12.9 SECONDS) 11.4 Activated Coag Time (74 - 125 SEC) 275 H Hematology WBC (3.5 - 11.0 K/mm3) 5.2 RBC (4.70 - 6.10 M/mm3) 5.63 Hgb (10.4 - 14.9 G/DL) 16.8 H Hct (31.5 - 44.1 %) 49.6 H MCV (84.5 - 98.6 Fl) 88.1 MCH (27.0 - 34.2 pg) 29.8 MCHC (31.5 - 34.0 G/DL) 33.9 RDW (11.5 - 14.5 SD) 14.6 H Plt Count (150 - 450 K/mm3) 229 MPV (7.0 - 10.5 fL) 10.10 Neut % (Auto) (40 - 76 %) 61.1 Lymph % (Auto) (20.5 - 51.1 %) 25.2 [place] % (Auto) (1.7 - 9.3 %) 10.8 H Eos % (Auto) (0.0 - 6.0 %) 1.5 Baso % (Auto) (0.0 - 2.0 %) 1.0 Neut # (Auto) (1.8 - 7.6 K/mm3) 3.2 Lymph # (Auto) (0.6 - 3.2 K/mm3) 1.3 [place] # (Auto) (0.3 - 1.1 K/mm3) 0.6 Eos # (Auto) (0.0 - 0.4 K/mm3) 0.1 Baso # (Auto) (0.0 - 0.1 K/mm3) 0.1 Abs Immat Gran (auto) (0.00 - 0.03 x10 3/uL) 0.02 Add Manual Diff (CRITERIA DIFF/SCN) NO Immature Gran % (0.0 - 5.0 %) 0.4 Nucleated RBC % (0.0 - 1.0 /100WBC%) 0.0 Serology SARS-CoV-2 Ag (Rapid) (Negative) NEGATIVE Laboratory Tests 02/16/23 0600: [Embedded Image Not Available] Diagnosis, Assessment Plan Free Text A P: CAD s/p PCI - s/p [facility] with stents placed to RCA and LAD today with Cardiology Dr. Araiza - monitor under continuous telemetry - continue home Xarelto, ASA, statin, metoprolol Hypomagnesemia - replete with mag sulfate - repeat BMP, Mag in AM Hypertension - continue home amlodipine, hydralazine, metoprolol - IV hydralazine PRN Hyperlipidemia - check lipid panel - continue home lipitor Hx of paroxysmal Afib - continue home metoprolol and Xarelto DVT prophylaxis with home Xarelto Full code Dispo- plan DC home tomorrow morning after overnight obs Gunnar Durbin 02/16/23 1627: Attestations Physician Attestation Agree w/findings plan: Agree with the findings and plan as documented by Donna VILLANUEVA; * my personal evaluation is CAD s/p PCI - s/p C with stents placed to RCA and LAD today with Cardiology Dr. Araiza out patient follow up at 1426 at 1636 RPT #: [id number] END OF REPORT [facility] 2023-02-16 12:15:00 [id number] [facility] [address] [place] [address] PATIENT NAME: KIMMIE RODRIGUEZ ADMIT DATE: 02/16/23 ACCOUNT NO: [id number] ROOM NO: [facility] AGE: 62 REPORT TYPE: CARDIAC CATHETERIZATION REPORT SEX: F ADMITTING PHYSICIAN: Chris Delgadillo MD ATTENDING PHYSICIAN: Chris Delgadillo MD PROCEDURE DATE: 02/16/2023 INDICATION FOR THE PROCEDURE: Angina, coronary artery disease, ischemia. TITLE OF THE PROCEDURES: 1. Left heart catheterization. 2. Drug-eluting stent of the RCA x2. 3. Drug-eluting stent of the LAD x1. 5. Nitroglycerin intracoronary. 6. Sealing device. ESTIMATED BLOOD LOSS: Minimal. COMPLICATIONS: None. CONTRAST: 120 mL. ANESTHESIA: Conscious sedation with Versed and fentanyl, 1% lidocaine for local anesthesia. FINAL DIAGNOSES: 1. Calcified arteries, severe 2-vessel coronary artery disease. 2. . Status post drug-eluting stent of the right coronary artery and the left anterior descending LAD. RECOMMENDATION: Observation overnight and medical therapy for the rest of her coronary artery disease. PROCEDURE IN DETAIL: After informed consent, the patient was brought to the cardiac catheterization lab in a stable fasting nonsedated state. She was prepped and draped in the usual sterile fashion. After conscious sedation, 1% lidocaine was administered to the right common femoral artery area for local anesthesia. A 6-Kyrgyz sheath was placed in the right common femoral artery using standard techniques and fluoroscopy. After heparinization left coronary angiogram showed heavy plaque burden, 20% left main, 25% proximal LAD, 75% focal lesion in the mid LAD, 30% plaques afterwards. The circumflex is kind of a smaller vessel with 25% plaquing in the circumflex itself and 45% plaquing in the first obtuse marginal. Right coronary artery angiogram; 2 dominant vessel, 50% mid and then followed by 95% and 65% lesions. There is also distal 50% lesion. It is like heavily calcified with diffuse plaquing. Left ventricular angiogram show an ejection fraction of 55%, normal wall motion, left ventricular end-diastolic pressure of 22. No wall motion abnormalities or aortic valve PATIENT NAME: KIMMIE RODRIGUEZ gradient. The right coronary artery appeared to be the culprit lesion, so we started with that first. The guide was a JR4. The wire was loose and I did two stents. The first one was a Synergy 3.5 x 24, then I followed it with a 3.5 x 12, that resulted in 0% residual at the areas of these stented area, there are plaques around it. Then, I went ahead and did the LAD. The guide used was an XB4. The wire was the same wire loose, the lesion was stented with a Synergy 3.5 x 12 that resulted in 0% residual in both RCA and LAD. Angiograms after this stent showed spasm, so nitroglycerin intracoronary was given in both times and that resulted in relief of the spasm. The right groin was sealed using Angio-Seal. There were no complications. The patient tolerated the procedure well. She was transferred back to the holding area for observation and she will be admitted overnight. Dictated By: Daniel Araiza MD Date Dictated: 02/16/2023 12:15:43 Date Transcribed: 02/16/2023 13:06:43 [facility] Receipt ID: [id number] Authenticated by Daniel Araiza MD On 02/16/2023 02:27:26 PM at 0227 PATIENT NAME: KIMMIE RODRIGUEZ [facility] 2023-02-16 06:14:00 [id number] [address] PATIENT NAME: KIMMIE RODRIGUEZ ADMIT DATE: 02/16/23 ACCOUNT NO: [id number] ROOM NO: AGE: 62 REPORT TYPE: eELECTROCARDIOGRAM SEX: F ADMITTING PHYSICIAN: ATTENDING PHYSICIAN: Daniel Araiza MD Order: [id number] Test Reason : PRE OP Test Date/Time Stamp: [facility] Feb 16 2023 06:14:33 Blood Pressure : / mmHG Vent. Rate : 088 BPM Atrial Rate : 000 BPM P-R Int : 000 ms QRS Dur : 094 ms QT Int : 394 ms P-R-T Axes : 000 027 024 degrees QTc Int : 476 ms Atrial fibrillation Nonspecific ST and T wave abnormality Abnormal ECG When compared with ECG of 12-JUN-2012 10:07, Atrial fibrillation has replaced Sinus rhythm Confirmed by DANIEL ARAIZA ([id number]) on 02/16/2023 6:43:45 AM Referred By: Daniel Araiza Confirmed by:DANIEL ARAIZA at 0643 PATIENT NAME: KIMMIE RODRIGUEZ [facility] 2023-02-15 07:18:00 [id number] [address] PATIENT NAME: KIMMIE RODRIGUEZ ADMIT DATE: ACCOUNT NO: [id number] ROOM NO: AGE: 62 REPORT TYPE: HISTORY AND PHYSICAL SEX: F ADMITTING PHYSICIAN: ATTENDING PHYSICIAN: Daniel Araiza MD Cardiology PATIENT NAME: KIMMIE RODRIGUEZ ADMIT DATE:02/16/2023 ADMISSION DATE: 02/16/2023 08:30:00 FINE SANDER: Daniel Araiza MD. REASON FOR ADMISSION: Angina, dyspnea, abnormal nuclear stress test, cardiomyopathy, high likelihood of significant coronary artery disease for left heart catheterization and possible revascularization. HISTORY OF PRESENT ILLNESS: Kimmie is a 62-year-old lady with no previously documented coronary artery disease, who has been a new patient of [x+1] since 12/20/2022. She comes in for symptoms consistent with angina and dyspnea on mild exertion. EKG shows atrial fibrillation, which appears to be chronic according to her history. Echocardiogram showed hypertensive changes, ejection fraction 55%-60%, mild mitral regurgitation. Nuclear stress test that was done [TIME: 01:27] showed ejection fraction of 42% with moderate anterior ischemia, which has changed from previous evaluation. Holter monitoring showed controlled atrial fibrillation with average heart rate of 85, lowest heart rate of 40 and 4 pauses, the longest 2.2 seconds. Given the nuclear findings and her symptoms, she is here for left heart catheterization to assess for possible revascularization. PAST MEDICAL HISTORY: Remarkable for chronic atrial fibrillation, hypertension, hyperlipidemia, neuropathy, lumbar disk disease, anxiety, vitamin B12 and D deficiencies and allergies. PAST SURGICAL HISTORY: She has had a fractured ankle repair surgery in April of 2022, C-sections in and , hysterectomy in 2012, kidney surgery for a defect in 1969. ALLERGIES: CODEINE CAUSES NAUSEA AND VOMITING, AND VALIUM CAUSES NAUSEA AND VOMITING. MEDICATIONS: She is on clonazepam at bedtime p.r.n., vitamins, gabapentin, atorvastatin 40 mg daily, furosemide 40 mg daily, hydralazine 100 mg t.i.d., metoprolol 100 mg b.i.d., Xarelto 20 mg daily is on hold, losartan 100 mg daily and amlodipine 5 mg daily. SOCIAL HISTORY: The patient is an active smoker. She also drinks alcohol regularly. There is no history of street drug use. She works as an accountant manager. FAMILY HISTORY: Positive for atherosclerotic cardiovascular disease. PATIENT NAME: KIMMIE RODRIGUEZ REVIEW OF SYSTEMS: Remarkable for the above in addition to fatigue, allergies. No acute GI or symptoms. No TIAs or strokes. She does have anxiety and neuropathy related pains. PHYSICAL EXAMINATION: GENERAL: Reveals a pleasant, middle-aged lady in no acute distress. VITAL SIGNS: Blood pressure 138/90, pulse 80 and regular, respiratory rate 16 and unlabored, temperature afebrile. HEENT: Head atraumatic, normocephalic. Eyes and ENT examination within normal for age. NECK: Supple. No jugular venous distention, bruits or lymphadenopathy. Normal upstroke. LUNGS: Clear and resonant. Decreased air entry at the bases noted. HEART: Irregular rate and rhythm, II/ systolic ejection murmur at the left lower sternal border. No gallops. The heart appears to be mildly enlarged. ABDOMEN: Obese. No tenderness, no organomegaly, no masses or bruits. EXTREMITIES: 1 to 2+ distal pulses. No edema, cyanosis or clubbing. NEUROLOGIC: Alert and oriented x3. The examination appears to be nonfocal. LABORATORY AND DIAGNOSTIC DATA: Pending. Noninvasive cardiovascular workup enclosed. IMPRESSION AND PLAN: This is a 62-year-old lady with symptomatic coronary artery disease with angina, dyspnea. She has chronic atrial fibrillation, multiple cardiovascular risk factors. She is here for a left heart catheterization to assess for possible revascularization due to the findings of ischemia on the nuclear stress test with depressed ejection fraction. The recommendation is to proceed with the above-mentioned procedures. The risks and benefits of the planned procedure were discussed in detail with the patient and available family members and she is willing to proceed. The rest as per orders. Dictated By: Daniel Araiza MD Date Dictated: 02/15/2023 07:18:40 Date Transcribed: 02/15/2023 09:03:22 [facility] Receipt ID: [id number] Authenticated and Edited by Daniel Araiza MD On 02/15/23 11:02:31 AM at 1103 PATIENT NAME: KIMMIE RODRIGUEZ [facility]
== END 2024-06-19 13:47 | disposition short-term general hospital (02) ==
LOC: ER 09:33
PROC: 30233N1 Transfusion of Nonautologous Red Blood Cells into Peripheral Vein, Percutaneous Approach (ICD-10-PCS; principal; 2024-06-19)
DX: D64.9 Anemia, unspecified (principal); R06.02 Shortness of breath; E87.1 Hypo-osmolality and hyponatremia; I50.9 Heart failure, unspecified; I10 Essential (primary) hypertension; I48.91 Unspecified atrial fibrillation; F17.210 Nicotine dependence, cigarettes, uncomplicated; Z11.52 Encounter for screening for COVID-19
CPT/HCPCS: 93005; 85025; 80048; 36415; 86900; 83735; 86850; 86901; 85379; 86920 ×2; 84484; 83880; 87804 ×2; 71045; 96374; 99285; 87811; 36430; J1940; P9016; J7050

== ENCOUNTER 2024-08-07 12:29 | Emergency (ER) | payer BC ==
--- NOTE | 2024-08-07 13:38 | RAD REPORT ---
EXAMINATION: CT ABDOMEN AND PELVIS WITHOUT CONTRAST CLINICAL INDICATION: abd pain, rectal bleeding TECHNIQUE: CT abdomen and pelvis was performed, without IV contrast, as per department protocol. Axia l, sagittal and coronal reconstructions were obtained. One or more of the following dose reduction techniques were used: Automated exposure control, adjustment of the mA and kV according to the patien t size, and iterative reconstruction. Unless otherwise specified, incidental findings do not require dedicated imaging follow-up. COMPARISON: Chest CT 2021 FINDINGS: The lack of intravenous contrast limits the sensitivity of this exam for evaluation of solid visceral organs, vascular structures, and retroperitoneum. LOWER CHEST: Small nodules are present in both lung bases, largest measuring 11 mm in the right lower lobe. LIVER: Hepatic size is mildly prominent with subtle nodularity suggesting mild cirrhosis. No evidence of liver mass or biliary dilatation. SPLEEN: Normal size. No focal lesion. PANCREAS: No mass, ductal dilation, or xiomy-pancreatic fluid. ADRENALS: Small nodules are present in both adrenal glands. KIDNEYS AND URETERS: Mild atrophy atrophy of the superior pole of the left kidney which could be rela juan to atrophy of a duplicated renal moiety.No stone or hydronephrosis. URINARY BLADDER: Normal contour. GASTROINTESTINAL TRACT: Moderate diverticulosis is seen involving the descending colon and sigmoid co ap. Thickening of the rectal mucosal and wall is present with mild inflammation of the perirectal fat. No adenopathy seen. APPENDIX: Normal appendix. LYMPH NODES: No lymphadenopathy. MUSCULOSKELETAL: Mild lower lumbar degenerative changes. ADDITIONAL FINDINGS: None. IMPRESSION: Circumferential thickening of the rectal wall is seen measuring up to 12 mm. Mild inflammation surrou nding the rectum and the posterior pelvic fat. This may represent proctitis. However, recommend follow-up colonoscopy for direct assessment of this region on a nonemergent basis. Mild liver cirrhosis suspected. Diverticulosis coli seen involving the descending colon and sigmoid colon. Small nonspecific nodules in the lung bases are incompletely assessed. Nonemergent dedicated CT chest follow-up recommended for full assessment.
[2024-08-07 14:43] LABS: Absolute Basophils 0.1 K/uL (0-0.5); Absolute Eosinophils 0.1 K/uL (0-0.5); Absolute Lymphocytes (CBC) 0.9 K/uL (0.7-4.9); Absolute Monocytes 0.5 K/uL (0.1-1.3); Basophils % 1.5 % (0-1.3); Eosinophils % 1.1 % (0-4.4); Hematocrit 26.3 % (36.0-45.0); Hemoglobin 7.9 g/dL (12.0-15.0); Lymphocytes % 15.6 % (15.3-44.8); MCH 20.7 pg (27.0-35.0); MCHC 29.9 g/dL (32.0-36.0); MCV 69.1 fL (80-100); MPV 8.4 fL (7.6-11.3); Monocytes % 9.9 % (3.3-12.3); Neutrophils % 71.9 % (41.7-73.7); Nucleated Red Blood Cells % 0.1 % (0-0); Platelets 349 thou/uL (152-406); RBC Red Blood Cell Count 3.81 M/uL (3.86-4.86); Red Cell Distribution Width 26.6 % (12.1-15.2)
[2024-08-07 14:51] LABS: PT Prothrombin Time 24.2 SECONDS (9.4-12.5); PTT, Activated Partial Thromb 34.1 SECONDS (24.3-36.9); Protime INR 2.21
[2024-08-07 15:02] LABS: Albumin 3.2 g/dL (3.4-5.0); Albumin/Globulin Ratio 0.9 (1.1-1.8); Anion Gap 7.5 mEq/L (5.0-15.0); Bilirubin Total 0.6 mg/dL (0.2-1.0); Globulin 3.5 g/dL (2.3-3.5); Potassium 3.5 mEq/L (3.5-5.1); Protein, Total 6.7 g/dL (6.4-8.2)
[2024-08-07 15:20] LABS: Anisocytosis 3+; Blood Morphology Comment NOTED (NOT SEEN); Hypochromasia 1+; Microcytosis 1+; Platelet Estimate ADEQ; White Blood Cell Scan OK (OK)
[2024-08-07] MEDS ORDERED: NA CHLORIDE 0.9% 250 ML ONE (16:22)
[2024-08-07] MEDS ORDERED: METOPROLOL TARTRATE 5 MG/5 ML INJ IV ONE (17:09)
[2024-08-07] MEDS ORDERED: METOPROLOL TAR 50 MG TAB ONE (19:41)
--- NOTE | 2024-08-07 20:24 | EDPHYS ---
Physician Documentation [facility] Name: Lora Pack Age: 63 yrs Sex: Female : 1960 Arrival Date: 08/07/2024 Time: 12:29 Bed 20 Private MD: ED Physician Eldon Gusman HPI: 08/07 14:04 This 63 yrs old Female presents to ER via Wheelchair with complaints of ec2 Rectal Bleeding. 14:04 Patient arrives today for evaluation of rectal bleeding. History of polyps as well as ec2 hemorrhoids. Reports she has been having increased rectal bleeding. Patient is on clopidogrel as well as Xarelto.. 14:05 Of note patient did recently had a colonoscopy approximately 2 months ago. Patient was ec2 noted to have polyps. Patient states she is scheduled to follow-up with GI and have some polyps removed however is on the 2antiplatelet agents. . Historical: - Allergies: 13:01 Codeine; me1 13:01 Valium; me1 13:01 vitamin K; me1 - PMHx: 13:01 Anxiety; Hypertensive disorder; Hypercholesterolemia; me1 - PSHx: 13:01 cardiac stents x3; section; Ligation of fallopian tube; Total abdominal me1 hysterectomy; - Immunization history:: Adult Immunizations up to date. - Infectious Disease History:: Denies. - Social history:: Smoking status: Patient reports the use of cigarette tobacco products, smokes one pack cigarettes per day. ROS: 14:04 Constitutional: as per hpi ec2 Exam: 14:04 Constitutional: GEN: NAD Head: atraumatic Eyes: EOMI Ears: External ears are ec2 normal. CV: Tachycardia LUNGS: no respiratory distress ABD: non-distended SKIN: no evidence of rashes MSK: no evidence of trauma Vital Signs: 12:58 BP 147 / 92; Pulse 108; Resp 18; Temp 97.9; Pulse Ox 97% ; Weight 110.68 kg; Height 5 me1 ft. 10 in. ; Pain 0/10; 14:00 BP 135 / 79; Pulse 97; Resp 16; Pulse Ox 95% ; me1 15:00 BP 141 / 74; Pulse 102; Resp 16; Pulse Ox 99% ; me1 16:00 BP 158 / 73; Pulse 123; Resp 18; Pulse Ox 95% ; me1 17:00 BP 179 / 92; Pulse 115; Resp 19; Temp 97; me1 18:00 BP 143 / 94; Pulse 109; Resp 16; Pulse Ox 93% ; me1 19:00 BP 147 / 65; Pulse 127; Resp 17; Pulse Ox 98% ; me1 20:20 BP 149 / 70; Pulse 107; Resp 17; Pulse Ox 97% ; me1 12:58 Body Mass Index 35.01 (110.68 kg, 177.8 cm) ms1 12:58 Pain Scale: Adult [facility] MDM: 12:46 Patient medically screened. ec2 13:57 ED course: CT abdomen pelvis shows minimal thickening of the rectal wall with ec2 associated inflammation, likely proctitis noted. Cirrhosis noted. Diverticulosis noted. . 14:04 Data reviewed: vital signs. ED course: Patient arrives today for evaluation of rectal ec2 bleeding. Examination remarkable for well-appearing nontoxic dividual slightly tachycardic. Will obtain lab work, CT imaging. Differential includes anemia, diverticulosis, hemorrhoids . 15:03 ED course: Metabolic profile reassuring. Coagulation profile with INR 2.21. Lipase ec2 within normal ranges. CT abdomen pelvis as above. Pending CBC. . 15:45 ED course: Given patient has rectal bleeding, I will give the patient a unit of blood. ec2 I discussed possible further inpatient hospitalization and GI evaluation however the patient agreed this is likely redundant given the recent evaluation and need for outpatient management. I will give the patient a unit of blood, reassess and possible discharge home.. 16:55 ED course: EKG independently reviewed and interpreted by me, shows atrial fibrillation, ec2 rate of 121, no acute ST segment elevations, intervals are nonactionable.. 17:52 ED course: Patient signed out pending blood transfusion. Patient does have A-fib with ec2 RVR, some improvement with metoprolol, patient is motivated to be discharged, she is agreeable to hospital admission therefore required multiple boluses of metoprolol. Patient signed out with pending reassessment. 08/07 12:46 Order name: CBC with Diff; Complete Time: 15:33 ec2 08/07 12:46 Order name: CMP; Complete Time: 15:03 ec2 08/07 12:46 Order name: Lipase; Complete Time: 15:03 ec2 08/07 12:46 Order name: Type And Screen ec2 08/07 12:46 Order name: PT-INR; Complete Time: 15:03 ec2 08/07 12:46 Order name: Ptt, Activated; Complete Time: 15:03 ec2 08/07 15:21 Order name: CBC Smear Scan; Complete Time: 15:33 EDMS 08/07 15:45 Order name: Packed RBCs (Additional Unit) EDMS 08/07 15:55 Order name: Bb Add On mb4 08/07 12:46 Order name: CT Abd/Pelvis - Without Contrast; Complete Time: 13:57 ec2 08/07 12:46 Order name: IV Saline Lock; Complete Time: 14:28 ec2 08/07 12:46 Order name: Labs collected and sent; Complete Time: 14:28 ec2 08/07 15:36 Order name: Consent for Blood Transfusion; Complete Time: 16:17 ec2 08/07 15:36 Order name: IV Saline Lock; Complete Time: 16:17 ec2 08/07 15:46 Order name: EKG - Nurse/Tech; Complete Time: 16:52 ec2 Administered Medications: 17:13 Drug: Metoprolol IVP 5 mg IVP once; Hold for SBP <100 or HR <60. Route: IVP; Site: [facility] right antecubital; 18:18 Follow up: Response: No adverse reaction me1 19:43 Drug: Metoprolol PO 100 mg PO once Route: PO; me1 20:25 Follow up: Response: No adverse reaction me1 Disposition Summary: 08/07/24 20:24 Discharge Ordered Notes: Location: Home cp Condition: Stable cp Diagnosis - Chronic atrial fibrillation cp - Diverticulosis of intestine, part unspecified, without perforation or abscess with cp bleeding - Anemia, unspecified cp Followup: ec2 - With: Private Physician - When: - Reason: Re-evaluation by your physician Discharge Instructions: - Atrial Fibrillation cp - Discharge Summary Sheet ec2 - Anemia ec2 - Blood Transfusion, Adult ec2 - Diverticulosis ec2 Forms: - Medication Reconciliation Form cp - Antibiotic Education cp - Prescription Opioid Use cp - Patient Portal Instructions cp - Leadership Thank You Letter cp Critical care time excluding procedures: 16:32 Critical care time: Bedside Care: 30 minutes. Total time: 30 minutes ec2 Signatures: Dispatcher [employer] EDHarsh Caceres PA PA cp Rosalina Arndt, RN RN me1 Eldon Gusman MD MD ec2 Corrections: (The following items were deleted from the chart) 13:03 13:01 PMHx: hemorrhoids (Hypercholesterolemia); me1 me1 13:03 13:01 PMHx: hemorrhoids (Hypercholesterolemia); me1 me1 13:03 13:01 PMHx: polyps (Hypercholesterolemia); me1 me1 15:47 15:36 PACKED RBC LEUKORED+BB.LAB.BRZ ordered. EDMS EDMS 15:47 15:38 ABO/RH typing ordered. EDMS EDMS 15:47 15:38 Antibody Screen ordered. EDMS EDMS
--- NOTE | 2024-08-07 20:24 | ER ---
Nurse's Notes [facility] Name: Lora Pack Age: 63 yrs Sex: Female : 1960 Arrival Date: 08/07/2024 Time: 12:29 Bed 20 Private MD: Diagnosis: Chronic atrial fibrillation;Diverticulosis of intestine, part unspecified, without perforation or abscess with bleeding;Anemia, unspecified Presentation: 08/07 12:58 Chief complaint: Patient states: has had bright red bloody stool x 2 days, c/o me1 generalized weakness and edema to BLE as well. Sees GI for polyps and hemorrhoids but cant have tx for them due to blood thinners. Scheduled August 19 for Watchman so she can stop blood thinners. Coronavirus screen: Vaccine status: Patient reports receiving the 2nd dose of the covid vaccine. Ebola Screen: No symptoms or risks identified at this time. Initial Sepsis Screen: Does the patient meet any 2 criteria? No. Patient's initial sepsis screen is negative. Does the patient have a suspected source of infection? No. Patient's initial sepsis screen is negative. Risk Assessment: Do you want to hurt yourself or someone else? Patient reports no desire to harm self or others. Onset of symptoms was August 05, 2024. 12:58 Method Of Arrival: Wheelchair hi1 12:58 Acuity: SIN 3 me1 Triage Assessment: 13:01 General: Appears comfortable, well groomed, well developed, well nourished, Behavior is me1 calm, cooperative, appropriate for age. Pain: Denies pain. EENT: No signs and/or symptoms were reported regarding the EENT system. Neuro: Level of Consciousness is awake, alert, obeys commands, Oriented to person, place, time, situation, Appropriate for age. Cardiovascular: Patient's skin is warm and dry. Respiratory: Airway is patent Respiratory effort is even, unlabored, Respiratory pattern is regular, symmetrical. GI: Reports rectal bleeding. : No signs and/or symptoms were reported regarding the genitourinary system. Derm: Skin is intact, is healthy with good turgor, Skin is pink, warm \T\ dry. Musculoskeletal: Circulation, motion, and sensation intact. Range of motion: intact in all extremities, Swelling present in right leg and left leg. Historical: - Allergies: 13:01 Codeine; me1 13:01 Valium; me1 13:01 vitamin K; me1 - PMHx: 13:01 Anxiety; Hypertensive disorder; Hypercholesterolemia; me1 - PSHx: 13:01 cardiac stents x3; section; Ligation of fallopian tube; Total abdominal me1 hysterectomy; - Immunization history:: Adult Immunizations up to date. - Infectious Disease History:: Denies. - Social history:: Smoking status: Patient reports the use of cigarette tobacco products, smokes one pack cigarettes per day. Screenin:04 [facility] ED Fall Risk Assessment (Adult) History of falling in the last 3 months, me1 including since admission No falls in past 3 months (0 pts) Confusion or Disorientation No (0 pts) Intoxicated or Sedated No (0 pts) Impaired Gait No (0 pts) Mobility Assist Device Used No (0 pt) Altered Elimination No (0 pt) Score/Fall Risk Level 0 - 2 = Low Risk Maintained a safe environment, Provided non-skid footwear, Hourly rounding (assess needs \T\ fall precautionary measures) done. Abuse screen: Denies threats or abuse. Nutritional screening: No deficits noted. Tuberculosis screening: No symptoms or risk factors identified. Assessment: 13:04 General: see triage assessment. . me1 18:26 Reassessment: Patient and/or family updated on plan of care and expected duration. Pain me1 level reassessed. Patient is alert, oriented x 3, equal unlabored respirations, skin warm/dry/pink. Vital Signs: 12:58 BP 147 / 92; Pulse 108; Resp 18; Temp 97.9; Pulse Ox 97% ; Weight 110.68 kg; Height 5 me1 ft. 10 in. ; Pain 0/10; 14:00 BP 135 / 79; Pulse 97; Resp 16; Pulse Ox 95% ; me1 15:00 BP 141 / 74; Pulse 102; Resp 16; Pulse Ox 99% ; me1 16:00 BP 158 / 73; Pulse 123; Resp 18; Pulse Ox 95% ; me1 17:00 BP 179 / 92; Pulse 115; Resp 19; Temp 97; me1 18:00 BP 143 / 94; Pulse 109; Resp 16; Pulse Ox 93% ; me1 19:00 BP 147 / 65; Pulse 127; Resp 17; Pulse Ox 98% ; me1 20:20 BP 149 / 70; Pulse 107; Resp 17; Pulse Ox 97% ; me1 12:58 Body Mass Index 35.01 (110.68 kg, 177.8 cm) me1 12:58 Pain Scale: Adult me1 ED Course: 12:31 Patient arrived in ED. mr 12:33 Eldon Gusman MD is Attending Physician. ec2 12:50 Rosalina Arndt, RN is Primary Nurse. me1 13:01 Triage completed. me1 13:01 Arm band placed on Patient placed in an exam room. me1 13:04 Patient has correct armband on for positive identification. Bed in low position. Call me1 light in reach. Side rails up X 1. Provided Education on: POC. Verbalized understanding.. Client placed on continuous cardiac and pulse oximetry monitoring. NIBP monitoring applied. Pulse ox on. NIBP on. Warm blanket given. 13:04 No provider procedures requiring assistance completed. me1 13:26 CT Abd/Pelvis - Without Contrast In Process Unspecified. EDMS 14:26 Initial lab(s) drawn, by me, sent to lab. T\T\S collected, blood band applied to patient. me1 Inserted saline lock: 20 gauge in right antecubital area, using aseptic technique. 14:28 Ptt, Activated Sent. me1 14:28 PT-INR Sent. me1 14:28 Type And Screen Sent. me1 14:28 CBC with Diff Sent. me1 16:23 Bb Add On Sent. me1 17:50 [facility] cp 18:19 Packed RBCs (Additional Unit) Sent. me1 18:19 EKG done, by ED staff, reviewed by Harsh HEREDIA. me1 20:41 IV discontinued, intact, bleeding controlled, No redness/swelling at site. Pressure me1 dressing applied. Administered Medications: 17:13 Drug: Metoprolol IVP 5 mg IVP once; Hold for SBP <100 or HR <60. Route: IVP; Site: me1 right antecubital; 18:18 Follow up: Response: No adverse reaction me1 19:43 Drug: Metoprolol PO 100 mg PO once Route: PO; me1 20:25 Follow up: Response: No adverse reaction me1 Medication: 13:04 VIS not applicable for this client. me1 Outcome: 20:24 Discharge ordered by . cp 20:41 Discharged to home via wheelchair, with significant other, me1 20:41 Condition: stable 20:41 Discharge instructions given to patient, significant other, Instructed on discharge instructions, follow up and referral plans. Demonstrated understanding of instructions, follow-up care, 20:41 Patient left the ED. me1 Signatures: Dispatcher [employer] ED Madison Murillo, Reg Reg mr Harsh Chase PA PA cp Eddleman, Michelle, RN RN me1 Eldon Gusman MD MD ec2 Corrections: (The following items were deleted from the chart) 13:03 13:01 PMHx: hemorrhoids (Hypercholesterolemia); hi1 hi1 13:03 13:01 PMHx: hemorrhoids (Hypercholesterolemia); hi1 [facility] 13:03 13:01 PMHx: polyps (Hypercholesterolemia); hi1 hi1
[2024-08-07 21:31] VITALS: TEMP 97
[2024-08-07 21:36] VITALS: BP 149/70; O2SAT 97
--- NOTE | 2024-08-10 12:00 | EKG ---
Test Date: 2024-08-07 Test Time: 16:48:30 Group Leader [employer]: TEMI MEASUREMENT RESULTS: Intervals: Rate: 121 AK: QRSD: 80 QT: 328 QTc: 465 [place]: P: AK: QRS: 59 T: 57 INTERPRETIVE STATEMENTS: Atrial fibrillation with rapid ventricular response Low voltage QRS Cannot rule out Anteroseptal infarct, age undetermined Abnormal ECG Compared to ECG 07/25/2024 13:23:29 Low QRS voltage now present Myocardial infarct finding now present ST (T wave) deviation no longer present Electronically Signed On 08-10-24 11:54:48 CDT by Eugenio Slaughter
== END 2024-08-07 20:41 | disposition home or self-care (01) ==
LOC: ER 12:29
PROC: 30233N1 Transfusion of Nonautologous Red Blood Cells into Peripheral Vein, Percutaneous Approach (ICD-10-PCS; principal; 2024-08-07)
DX: I48.20 Chronic atrial fibrillation, unspecified (principal); D64.9 Anemia, unspecified; K57.30 Diverticulosis of large intestine without perforation or abscess without bleeding; I10 Essential (primary) hypertension; F17.210 Nicotine dependence, cigarettes, uncomplicated; Z79.01 Long term (current) use of anticoagulants; Z95.818 Presence of other cardiac implants and grafts
CPT/HCPCS: 85025; 36415; 86900; 86850; 85610; 86901; 85730; 86920; 83690; 80053; 74176; 96374; 99285; 36430; P9016; J7050; 93005